=== PATIENT | male | born 1930 | race Two or more races ===

== ENCOUNTER 2016-10-23 18:00 | Inpatient (IN) | payer MEDICARE, MEDICAID ==
[~2016-10-23] VITALS: Ht 172.7 cm; Wt 74.8 kg
[2016-10-23 19:27] LABS: EOSINOPHILS % (AUTO) 1.4 % (0.0-3.0); LYMPHOCYTES % (AUTO) 13.4 % (20.0-45.0); MEAN CORPUSCULAR HEMOGLOBIN 30.7 PG (27.0-31.0); MEAN CORPUSCULAR HGB CONC 33.3 G/DL (32.0-36.0); MEAN CORPUSCULAR VOLUME 92 FL (80-99); MEAN PLATELET VOLUME 7.6 FL (6.5-10.1); MONOCYTES % (AUTO) 8.8 % (1.0-10.0); NEUTROPHILS % (AUTO) 75.5 % (45.0-75.0); PLATELET COUNT 150 K/UL (150-450); RED BLOOD COUNT 3.94 M/UL (4.70-6.10); RED CELL DISTRIBUTION WIDTH 12.7 % (11.6-14.8); WHITE BLOOD COUNT 8.8 K/UL (4.8-10.8)
[2016-10-23 20:03] LABS: ALANINE AMINOTRANSFERASE 7 U/L (3-41); ALBUMIN/GLOBULIN RATIO 1.8 (1.0-2.7); ANION GAP 15 (5-15); ASPARTATE AMINO TRANSFERASE 14 U/L (5-40); CALCIUM 8.7 mg/dL (8.6-10.2); CARBON DIOXIDE 24 mEQ/L (20-30); CHLORIDE 100 mEQ/L (98-107); CREATININE 1.4 mg/dL (0.7-1.2); HEMOLYSIS 9; SODIUM 139 mEQ/L (135-145); TOTAL PROTEIN 5.7 g/dL (6.6-8.7); TROPONIN I < 0.30 ng/mL (<=0.30)
[2016-10-23 20:13] LABS: CKMB 3.4 ng/mL (< 6.7)
[2016-10-23 21:43] VITALS: BP 108/65
[2016-10-23] MEDS ORDERED: Morphine Sulfate 2mg/ml Inj IVP PRN (22:45)
[2016-10-23] MEDS ORDERED: Nitroglycerin Subl 0.4mg tab (Bottle Of 25) SL PRN (22:45)
[2016-10-23] MEDS ORDERED: Mylanta II UD 30ml ORAL PRN (22:45)
[2016-10-23] MEDS ORDERED: Miralax 17gm pkt ORAL PRN (22:45)
[2016-10-23] MEDS ORDERED: UNOBMED (22:58)
[2016-10-23 23:11] VITALS: BP 110/67
--- NOTE | 2016-10-23 23:13 | Emergency Room Report ---
History of Present Illness General Chief Complaint: Dizziness Source: EMS Present Illness HPI 86-year-old male presents ED complaining of abdominal pain and diarrhea. Patient notes pain for last few days. EMS patient had low blood pressure. Given IV fluids. Patient states pain is a 5/10, sharp, nonradiating. No aggravating or relieving factors. Denies fevers or chills. Denies chest pain or shortness of breath. Denies any other associated symptoms Allergies: Coded Allergies: No Known Allergies (Unverified , 10/23/16) Patient History Past Medical History: CAD Past Surgical History: none Pertinent Family History: none Social History: Denies: alcohol use, drug use, smoking Immunizations: UTD Reviewed Nursing Documentation: PMH: Agreed, PSxH: Agreed Nursing Documentation-PMH Past Medical History: No History, Except For Hx Cardiac Problems: Yes - STENT Hx Pacemaker: Yes Review of Systems All Other Systems: negative except mentioned in HPI Physical Exam Vital Signs Date Time Temp Pulse Resp B/P Pulse Ox O2 Delivery O2 Flow Rate FiO2 10/23/16 18:00 57 16 89/49 99 Room Air 10/23/16 21:43 98.9 Sp02 EP Interpretation: reviewed, normal General Appearance: no apparent distress, alert, GCS 15, non-toxic Head: normocephalic, atraumatic Eyes: bilateral eye PERRL, bilateral eye normal inspection ENT: hearing grossly normal, normal pharynx, no angioedema, normal voice Neck: full range of motion, supple/symm/no masses Respiratory: chest non-tender, lungs clear, normal breath sounds, speaking full sentences Cardiovascular #1: regular rate, rhythm, no edema Cardiovascular #2: 2+ carotid (R), 2+ carotid (L), 2+ radial (R), 2+ radial (L) , 2+ dorsalis pedis (R), 2+ dorsalis pedis (L) Gastrointestinal: normal bowel sounds, soft, non-distended, no guarding, no rebound, tenderness Rectal: deferred Genitourinary: normal inspection, no CVA tenderness Musculoskeletal: back normal, gait/station normal, normal range of motion, non- tender Neurologic: alert, oriented x3, responsive, motor strength/tone normal, sensory intact, speech normal Psychiatric: judgement/insight normal, memory normal, mood/affect normal, no suicidal/homicidal ideation Reflexes: 3+ bicep (R), 3+ bicep (L), 3+ tricep (R), 3+ tricep (L), 3+ knee (R) , 3+ knee (L) Skin: normal color, no rash, warm/dry, well hydrated Lymphatic: no adenopathy Medical Decision Making Diagnostic Impression: Primary Impression: Intractable abdominal pain Additional Impressions: Dehydration ARF (acute renal failure) Qualified Codes: N17.9 - Acute kidney failure, unspecified Diverticulosis Qualified Codes: K57.30 - Diverticulosis of large intestine without perforation or abscess without bleeding ER Course Hospital Course 86-year-old male presents to ED with dizziness, abd pain, diarrhea Differential diagnoses include: gastroenteritis, dehydration, sepsis Clinical course Patient placed on stretcher. household chores. After initial history and physical I ordered labs, IV fluids, UA, pain medication and CT scan Labs - no leukocytosis, Hb/Hct stable. Cr 1.4, BNP elevated CT abdomen and pelvis -diverticulosis, bladder thickening EKG - atrial paced rhythm CXR - pacemaker Case discussed with Dr. Adorno and he agreed to accept the patient to his service for further care and support I feel this is a highly complex case requiring extensive working including EKG/ Rhythm strip, Xray/CT/US, Blood/urine lab work, repeat exams while in ED, and administration of strong opiates/narcotics for pain control, admission to hospital or close patient follow up. Diagnosis - intractable abd pain, dehydration, ARF, diverticulsis [facility] Labs Test 10/23/16 19:12 White Blood Count 8.8 K/UL (4.8-10.8) Red Blood Count 3.94 M/UL (4.70-6.10) Hemoglobin 12.1 G/DL (14.2-18.0) Hematocrit 36.4 % (42.0-52.0) Mean Corpuscular Volume 92 FL (80-99) Mean Corpuscular Hemoglobin 30.7 PG (27.0-31.0) Mean Corpuscular Hemoglobin Concent 33.3 G/DL (32.0-36.0) Red Cell Distribution Width 12.7 % (11.6-14.8) Platelet Count 150 K/UL (150-450) Mean Platelet Volume 7.6 FL (6.5-10.1) Neutrophils (%) (Auto) 75.5 % (45.0-75.0) Lymphocytes (%) (Auto) 13.4 % (20.0-45.0) Monocytes (%) (Auto) 8.8 % (1.0-10.0) Eosinophils (%) (Auto) 1.4 % (0.0-3.0) Basophils (%) (Auto) 1.0 % (0.0-2.0) Sodium Level 139 mEQ/L (135-145) Potassium Level 4.0 mEQ/L (3.4-4.9) Chloride Level 100 mEQ/L (98-107) Carbon Dioxide Level 24 mEQ/L (20-30) Anion Gap 15 (5-15) Blood Urea Nitrogen 21 mg/dL (7-23) Creatinine 1.4 mg/dL (0.7-1.2) Estimat Glomerular Filtration Rate mL/min (>60) Glucose Level 107 mg/dL (74-106) Calcium Level 8.7 mg/dL (8.6-10.2) Total Bilirubin 0.4 mg/dL (0.0-1.2) Aspartate Amino Transf (AST/SGOT) 14 U/L (5-40) Alanine Aminotransferase (ALT/SGPT) 7 U/L (3-41) Alkaline Phosphatase 52 U/L (40-129) Total Creatine Kinase 92 U/L (38-174) Creatine Kinase MB 3.4 ng/mL (< 6.7) Creatine Kinase MB Relative Index 3.6 Troponin I < 0.30 ng/mL (<=0.30) Pro-B-Type Natriuretic Peptide 1926 pg/mL (0-450) Total Protein 5.7 g/dL (6.6-8.7) Albumin 3.7 g/dL (3.5-5.2) Globulin 2.0 g/dL Albumin/Globulin Ratio 1.8 (1.0-2.7) EKG Diagnostic Results Rate: bradycardiac Rhythm: other - atrial paced ST Segments: no acute changes ASA given to the pt in ED: No Rhythm Strip Diag. Results EP Interpretation: yes Rhythm: NSR, no PVC's, no ectopy Chest X-Ray Diagnostic Results EP Interpretation: Yes Findings: no consolidation, no effusion, no pneumothorax, no acute cardiopulmonary disease, other - pacemaker Number of Views: 1 CT/MRI/US Diagnostic Results CT/MRI/US Diagnostic Results : Imaging Test Ordered: CT A/P Impression diverticulosis, bladder thickening Last Vital Signs Date Time Temp Pulse Resp B/P Pulse Ox O2 Delivery O2 Flow Rate FiO2 10/23/16 21:43 98.9 89 22 108/65 99 Room Air Status: improved Disposition: ADMITTED INPATIENT Condition: Serious Referrals: NOT CHOSEN IPA/,REFERRING (PCP) SABRINA CAMPOS M.D. Oct 23, 2016 23:13
[2016-10-24 00:01] LABS: APPEARANCE,URINE CLEAR; KETONES,URINE NEGATIVE (NEGATIVE); LEUKOCYTE ESTERASE ,URINE NEGATIVE (NEGATIVE); NITRITE,URINE NEGATIVE (NEGATIVE); PH,URINE 5 (4.5-8.0); UROBILINOGEN,URINE 1 MG/DL (0.0-1.0)
[2016-10-24 00:02] LABS: PROTEIN,URINE NEGATIVE (NEGATIVE)
[2016-10-24 00:40] VITALS: BP 101/47
[2016-10-24 01:11] LABS: BACTERIA,URINE FEW /HPF; RBC,URINE 0 /HPF (0 - 0); WBC,URINE 0 /HPF (0 - 0)
[2016-10-24] MEDS: D5 1/2NS 1,000 ML IV SCH ×3 (01:48→20:33)
[2016-10-24 04:27] VITALS: BP 104/59
[2016-10-24 07:48] VITALS: BP 107/58
[2016-10-24 07:53] LABS: BASOPHILS % (AUTO) 0.9 % (0.0-2.0); EOSINOPHILS % (AUTO) 3.1 % (0.0-3.0); LYMPHOCYTES % (AUTO) 32.5 % (20.0-45.0); MEAN CORPUSCULAR HEMOGLOBIN 30.9 PG (27.0-31.0); MEAN CORPUSCULAR HGB CONC 33.4 G/DL (32.0-36.0); MEAN CORPUSCULAR VOLUME 93 FL (80-99); MEAN PLATELET VOLUME 8.5 FL (6.5-10.1); MONOCYTES % (AUTO) 9.6 % (1.0-10.0); NEUTROPHILS % (AUTO) 53.9 % (45.0-75.0); PLATELET COUNT 155 K/UL (150-450); RED BLOOD COUNT 3.87 M/UL (4.70-6.10); RED CELL DISTRIBUTION WIDTH 12.8 % (11.6-14.8); WHITE BLOOD COUNT 6.3 K/UL (4.8-10.8)
[2016-10-24 08:06] LABS: MAGNESIUM 2.1 mg/dL (1.7-2.5); PHOSPHORUS 3.5 mg/dL (2.5-4.8); URIC ACID 4.8 mg/dL (3.0-7.5)
[2016-10-24 08:12] LABS: FREE T3 2.4 pg/mL (2.3-4.2)
[2016-10-24 08:17] LABS: ALANINE AMINOTRANSFERASE 6 U/L (3-41); ALBUMIN/GLOBULIN RATIO 2.3 (1.0-2.7); ANION GAP 13 (5-15); ASPARTATE AMINO TRANSFERASE 12 U/L (5-40); CALCIUM 8.3 mg/dL (8.6-10.2); CARBON DIOXIDE 24 mEQ/L (20-30); CHLORIDE 106 mEQ/L (98-107); CREATININE 1.1 mg/dL (0.7-1.2); HEMOLYSIS 0; SODIUM 143 mEQ/L (135-145)
[2016-10-24 08:36] LABS: AMYLASE 50 U/L (10-110); LIPASE 53 U/L (< 60)
[2016-10-24] MEDS: Heparin 5000 units/ml inj SUBQ SCH ×2 (08:56→20:34)
--- NOTE | 2016-10-24 10:35 | Diagnostic Imaging Report ---
Indication: Abdominal pain Technique: Continuous helical transaxial imaging of the abdomen and pelvis was obtained from the lung bases to the pubic symphysis during intravenous contrast administration. Coronal 2-D reformats were also obtained. Study obtained in a Siemens sensation [address] Total Dose length Product (DLP): [address] Dose Index Volume (CTDIvol): 18 mGy Comparison: None Findings: Pacemaker is noted. The lung bases are clear. Aorta is moderately calcified. Small hiatal hernia is present. The stomach is markedly distended with ingested material. Cholecystectomy noted. No abnormalities of the liver or spleen identified. There is extensive diverticulosis of the colon without definite diverticulitis. Under distended transverse colon noted. No adrenal mass seen. Parapelvic renal cysts are noted bilaterally. Prostate is enlarged measuring 7.2 x 6.2 x 8.0 cm. There is a left inguinal hernia containing fat. There is narrowing of intervertebral discs and accompanying endplate osteophyte formation. Hypertrophied facet joints also demonstrated.. The bones are osteopenic. There is thinning of the wall of the left ventricular apex. Appendix is not definitely seen but there are no secondary signs of acute appendicitis.. Curious finding of several tiny linear structures likely small veins within the mesentery especially the omentum. The reason and significance of this observation is not known. Impression: Extensive diverticulosis of the colon. No definite diverticulitis. Pacemaker Atherosclerotic vascular disease Enlarged prostate. Secondary cystitis with wall thickening of the bladder may be present. Please correlate clinically. 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 No evidence of acute appendicitis. Left inguinal hernia containing fat Dr. Ward has communicated the preliminary results to the Emergency Department. There are no significant discrepancies. The CT scanner at [facility] is accredited by the [employer] and the scans are performed using protocols designed to limit radiation exposure to as low as reasonably achievable to attain images of sufficient resolution adequate for diagnostic evaluation.
[2016-10-24 11:17] VITALS: BP 103/61
--- NOTE | 2016-10-24 13:08 | Diagnostic Imaging Report ---
Indication: Chest Pain Comparison: None A single view chest radiograph was obtained. Findings: No definite infiltrate or pulmonary vascular congestion identified. Pacemaker noted. The heart is enlarged. The aorta is mildly enlarged consistent with atherosclerotic vascular disease. The bones are osteopenic. The humeral heads are high riding bilaterally indicative of chronic rotator cuff tears Impression: No acute disease
--- NOTE | 2016-10-24 13:09 | Consultation ---
History of Present Illness General Date patient seen: Oct 24, 2016 Chief Complaint: Dizziness Referring physician: Dr. Adorno Reason for Consultation: Inpatient Management Present Illness HPI 86-year-old male with hx of pacemaker presents ED complaining of abdominal pain and diarrhea for last few days. He apparently passed out and his friend tried to do CPR. Patient had low blood pressure in the filed. He was given IV fluids. Denies fevers or chills. He is admitted to telemetry for sepsis and hypotension. Allergies: Coded Allergies: No Known Allergies (Unverified , 10/23/16) Medication History Miscellaneous Medications Unable to Obtain Medications (Unable To Obtain Meds), (Reported) Patient History Healthcare decision maker pt alert and oriented Resuscitation status Full Code Advanced Directive on File Past Medical/Surgical History Past Medical/Surgical History: (1) Pacemaker Review of Systems All Other Systems: negative except mentioned in HPI Physical Exam General Appearance: WD/WN Lines, tubes and drains: peripheral HEENT: normocephalic Neck: non-tender, normal alignment Respiratory/Chest: chest wall non-tender, lungs clear Breasts: no masses Cardiovascular/Chest: normal peripheral pulses Abdomen: normal bowel sounds, non tender Extremities: normal range of motion Skin Exam: normal pigmentation 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 Last 24 Hour Vital Signs Date Time Temp Pulse Resp B/P Pulse Ox O2 Delivery O2 Flow Rate FiO2 10/24/16 11:17 98.1 55 20 103/61 98 Room Air 10/24/16 08:00 52 10/24/16 07:48 96.1 57 20 107/58 98 Room Air 10/24/16 04:27 98.4 60 20 104/59 97 Room Air 10/24/16 04:00 59 10/24/16 01:35 64 10/24/16 00:49 98.7 80 19 101/47 99 Room Air 10/24/16 00:40 98.7 80 19 101/47 99 Room Air 10/23/16 23:11 98.7 87 21 110/67 98 Room Air 10/23/16 21:43 98.9 89 22 108/65 99 Room Air 10/23/16 18:00 57 16 89/49 99 Room Air Intake and Output 10/23/16 10/24/16 19:00 07:00 Intake Total 1375 ml Balance 1375 ml Intake IV Total 1375 ml Laboratory Tests Test 10/23/16 19:12 10/23/16 23:16 10/24/16 06:45 White Blood Count 8.8 K/UL (4.8-10.8) 6.3 K/UL (4.8-10.8) Red Blood Count 3.94 M/UL (4.70-6.10) L 3.87 M/UL (4.70-6.10) L Hemoglobin 12.1 G/DL (14.2-18.0) L 12.0 G/DL (14.2-18.0) L Hematocrit 36.4 % (42.0-52.0) L 35.8 % (42.0-52.0) L Mean Corpuscular Volume 92 FL (80-99) 93 FL (80-99) Mean Corpuscular Hemoglobin 30.7 PG (27.0-31.0) 30.9 PG (27.0-31.0) Mean Corpuscular Hemoglobin Concent 33.3 G/DL (32.0-36.0) 33.4 G/DL (32.0-36.0) Red Cell Distribution Width 12.7 % (11.6-14.8) 12.8 % (11.6-14.8) Platelet Count 150 K/UL (150-450) 155 K/UL (150-450) Mean Platelet Volume 7.6 FL (6.5-10.1) 8.5 FL (6.5-10.1) Neutrophils (%) (Auto) 75.5 % (45.0-75.0) H 53.9 % (45.0-75.0) Lymphocytes (%) (Auto) 13.4 % (20.0-45.0) L 32.5 % (20.0-45.0) Monocytes (%) (Auto) 8.8 % (1.0-10.0) 9.6 % (1.0-10.0) Eosinophils (%) (Auto) 1.4 % (0.0-3.0) 3.1 % (0.0-3.0) H Basophils (%) (Auto) 1.0 % (0.0-2.0) 0.9 % (0.0-2.0) Sodium Level 139 mEQ/L (135-145) 143 mEQ/L (135-145) Potassium Level 4.0 mEQ/L (3.4-4.9) 4.0 mEQ/L (3.4-4.9) Chloride Level 100 mEQ/L (98-107) 106 mEQ/L (98-107) Carbon Dioxide Level 24 mEQ/L (20-30) 24 mEQ/L (20-30) Anion Gap 15 (5-15) 13 (5-15) Blood Urea Nitrogen 21 mg/dL (7-23) 18 mg/dL (7-23) Creatinine 1.4 mg/dL (0.7-1.2) H 1.1 mg/dL (0.7-1.2) Estimat Glomerular Filtration Rate mL/min (>60) mL/min (>60) Glucose Level 107 mg/dL (74-106) H 102 mg/dL (74-106) Plasma/Serum Osmolality Pending Calcium Level 8.7 mg/dL (8.6-10.2) 8.3 mg/dL (8.6-10.2) L Total Bilirubin 0.4 mg/dL (0.0-1.2) 0.3 mg/dL (0.0-1.2) Aspartate Amino Transf (AST/SGOT) 14 U/L (5-40) 12 U/L (5-40) Alanine Aminotransferase (ALT/SGPT) 7 U/L (3-41) 6 U/L (3-41) Alkaline Phosphatase 52 U/L (40-129) 52 U/L (40-129) Total Creatine Kinase 92 U/L (38-174) 74 U/L (38-174) Creatine Kinase MB 3.4 ng/mL (< 6.7) Creatine Kinase MB Relative Index 3.6 Troponin I < 0.30 ng/mL (<=0.30) Pro-B-Type Natriuretic Peptide 1926 pg/mL (0-450) H Total Protein 5.7 g/dL (6.6-8.7) L 5.0 g/dL (6.6-8.7) L Albumin 3.7 g/dL (3.5-5.2) 3.5 g/dL (3.5-5.2) Globulin 2.0 g/dL 1.5 g/dL Albumin/Globulin Ratio 1.8 (1.0-2.7) 2.3 (1.0-2.7) Cortisol Pending Urine Color Yellow Urine Appearance Clear Urine pH 5 (4.5-8.0) Urine Specific [place] 1.015 (1.005-1.035) Urine Protein Negative (NEGATIVE) Urine Glucose (UA) Negative (NEGATIVE) Urine Ketones Negative (NEGATIVE) Urine Occult Blood Negative (NEGATIVE) Urine Nitrite Negative (NEGATIVE) Urine Bilirubin Negative (NEGATIVE) Urine Urobilinogen 1 MG/DL (0.0-1.0) H Urine Leukocyte Esterase Negative (NEGATIVE) Urine RBC 0 /HPF (0 - 0) Urine WBC 0 /HPF (0 - 0) Urine Squamous Epithelial Cells None /LPF (NONE/OCC) Urine Bacteria Few /HPF (NONE) Urine Eosinophils None seen Urine Osmolality Pending Urine Random Sodium 78 mmol/L Urine Random Chloride 85 mmol/L Urine Potassium Timed 56 mmol/L Activated Partial Thromboplast Time 25 SEC (23-33) Uric Acid 4.8 mg/dL (3.0-7.5) Phosphorus Level 3.5 mg/dL (2.5-4.8) Magnesium Level 2.1 mg/dL (1.7-2.5) Amylase Level 50 U/L (10-110) Lipase 53 U/L (< 60) Thyroid Stimulating Hormone (TSH) 1.050 uIU/mL (0.300-4.500) Free Thyroxine 1.21 ng/dL (0.86-1.85) Free Triiodothyronine 2.4 pg/mL (2.3-4.2) Height (Feet): 5 Height (Inches): 8.00 Weight (Pounds): 165 Medications Current Medications Medications (Trade) Dose Ordered Sig/Jose Route PRN Reason Start Time Stop Time Status Last Admin Dose Admin Acetaminophen (Tylenol) 650 mg Q4H PRN ORAL fever 10/23/16 22:45 11/22/16 22:44 Al Hydroxide/Mg Hydroxide (Mylanta II) 30 ml Q6H PRN ORAL dyspepsia 10/23/16 22:45 11/22/16 22:44 Dextrose (Dextrose 50%) STAT PRN IV Hypoglycemia 10/23/16 22:45 11/22/16 22:44 Dextrose/Sodium Chloride (D5 0.45% NS) 1,000 ml @ 75 mls/hr [id number] IV 10/23/16 17:40 11/22/16 17:39 10/24/16 01:48 Diphenhydramine HCl (Benadryl) 25 mg Q6H PRN ORAL Itching/Pruritis 10/23/16 22:45 11/22/16 22:44 Heparin Sodium (Porcine) (Heparin 5000 units/ml) 5,000 units EVERY 12 HOURS SUBQ 10/24/16 09:00 11/23/16 08:59 10/24/16 08:56 Morphine Sulfate (Morphine Sulfate) 2 mg Q4H PRN IVP severe Pain (Pain Scale 7-10) 10/23/16 22:45 10/30/16 22:44 Nitroglycerin (Ntg) 0.4 mg Q5M X 3 DOSES PRN SL Prn Chest Pain 10/23/16 22:45 11/22/16 22:44 Ondansetron HCl (Zofran) 4 mg Q6H PRN IVP Nausea & Vomiting 10/23/16 22:45 11/22/16 22:44 Polyethylene Glycol (Miralax) 17 gm HSPRN PRN ORAL Constipation 10/23/16 22:45 11/22/16 22:44 Temazepam (Restoril) 15 mg HSPRN PRN ORAL Insomnia 10/23/16 22:45 10/30/16 22:44 10/24/16 03:40 Assessment/Plan Problem List: (1) Hypotension ICD Codes: I95.9 - Hypotension, unspecified SNOMED: 46328650 (2) Diverticulosis ICD Codes: K57.90 - Diverticulosis of intestine, part unspecified, without perforation or abscess without bleeding SNOMED: 313080518 Qualifiers: Qualified Codes: K57.30 - Diverticulosis of large intestine without perforation or abscess without bleeding (3) Intractable abdominal pain ICD Codes: R10.9 - Unspecified abdominal pain SNOMED: 52511141, 034521953 (4) Pacemaker ICD Codes: Z95.0 - Presence of cardiac pacemaker SNOMED: 974670834, 797385208 Assessment/Plan Iv fluids echo NPO/GI work up evaluate pace maker check electrolytes ABBY JONES Oct 24, 2016 13:09
--- NOTE | 2016-10-24 14:35 | Cardiac Electrophysiology PN ---
Subjective Subjective 9390089. S/P BS BIVICD CHF EF 30% CAD s/p Stent S/P TAVR DW Dr [place] Objective Last 24 Hour Vital Signs Date Time Temp Pulse Resp B/P Pulse Ox O2 Delivery O2 Flow Rate FiO2 10/24/16 12:00 55 10/24/16 11:17 98.1 55 20 103/61 98 Room Air 10/24/16 08:00 52 10/24/16 07:48 96.1 57 20 107/58 98 Room Air 10/24/16 04:27 98.4 60 20 104/59 97 Room Air 10/24/16 04:00 59 10/24/16 01:35 64 10/24/16 00:49 98.7 80 19 101/47 99 Room Air 10/24/16 00:40 98.7 80 19 101/47 99 Room Air 10/23/16 23:11 98.7 87 21 110/67 98 Room Air 10/23/16 21:43 98.9 89 22 108/65 99 Room Air 10/23/16 18:00 57 16 89/49 99 Room Air Intake and Output 10/23/16 10/24/16 19:00 07:00 Intake Total 1375 ml Balance 1375 ml Intake IV Total 1375 ml Laboratory Tests Test 10/23/16 19:12 10/23/16 23:16 10/24/16 06:45 White Blood Count 8.8 K/UL (4.8-10.8) 6.3 K/UL (4.8-10.8) Red Blood Count 3.94 M/UL (4.70-6.10) L 3.87 M/UL (4.70-6.10) L Hemoglobin 12.1 G/DL (14.2-18.0) L 12.0 G/DL (14.2-18.0) L Hematocrit 36.4 % (42.0-52.0) L 35.8 % (42.0-52.0) L Mean Corpuscular Volume 92 FL (80-99) 93 FL (80-99) Mean Corpuscular Hemoglobin 30.7 PG (27.0-31.0) 30.9 PG (27.0-31.0) Mean Corpuscular Hemoglobin Concent 33.3 G/DL (32.0-36.0) 33.4 G/DL (32.0-36.0) Red Cell Distribution Width 12.7 % (11.6-14.8) 12.8 % (11.6-14.8) Platelet Count 150 K/UL (150-450) 155 K/UL (150-450) Mean Platelet Volume 7.6 FL (6.5-10.1) 8.5 FL (6.5-10.1) Neutrophils (%) (Auto) 75.5 % (45.0-75.0) H 53.9 % (45.0-75.0) Lymphocytes (%) (Auto) 13.4 % (20.0-45.0) L 32.5 % (20.0-45.0) Monocytes (%) (Auto) 8.8 % (1.0-10.0) 9.6 % (1.0-10.0) Eosinophils (%) (Auto) 1.4 % (0.0-3.0) 3.1 % (0.0-3.0) H Basophils (%) (Auto) 1.0 % (0.0-2.0) 0.9 % (0.0-2.0) Sodium Level 139 mEQ/L (135-145) 143 mEQ/L (135-145) Potassium Level 4.0 mEQ/L (3.4-4.9) 4.0 mEQ/L (3.4-4.9) Chloride Level 100 mEQ/L (98-107) 106 mEQ/L (98-107) Carbon Dioxide Level 24 mEQ/L (20-30) 24 mEQ/L (20-30) Anion Gap 15 (5-15) 13 (5-15) Blood Urea Nitrogen 21 mg/dL (7-23) 18 mg/dL (7-23) Creatinine 1.4 mg/dL (0.7-1.2) H 1.1 mg/dL (0.7-1.2) Estimat Glomerular Filtration Rate mL/min (>60) mL/min (>60) Glucose Level 107 mg/dL (74-106) H 102 mg/dL (74-106) Plasma/Serum Osmolality Pending Calcium Level 8.7 mg/dL (8.6-10.2) 8.3 mg/dL (8.6-10.2) L Total Bilirubin 0.4 mg/dL (0.0-1.2) 0.3 mg/dL (0.0-1.2) Aspartate Amino Transf (AST/SGOT) 14 U/L (5-40) 12 U/L (5-40) Alanine Aminotransferase (ALT/SGPT) 7 U/L (3-41) 6 U/L (3-41) Alkaline Phosphatase 52 U/L (40-129) 52 U/L (40-129) Total Creatine Kinase 92 U/L (38-174) 74 U/L (38-174) Creatine Kinase MB 3.4 ng/mL (< 6.7) Creatine Kinase MB Relative Index 3.6 Troponin I < 0.30 ng/mL (<=0.30) Pro-B-Type Natriuretic Peptide 1926 pg/mL (0-450) H Total Protein 5.7 g/dL (6.6-8.7) L 5.0 g/dL (6.6-8.7) L Albumin 3.7 g/dL (3.5-5.2) 3.5 g/dL (3.5-5.2) Globulin 2.0 g/dL 1.5 g/dL Albumin/Globulin Ratio 1.8 (1.0-2.7) 2.3 (1.0-2.7) Cortisol Pending Urine Color Yellow Urine Appearance Clear Urine pH 5 (4.5-8.0) Urine Specific [place] 1.015 (1.005-1.035) Urine Protein Negative (NEGATIVE) Urine Glucose (UA) Negative (NEGATIVE) Urine Ketones Negative (NEGATIVE) Urine Occult Blood Negative (NEGATIVE) Urine Nitrite Negative (NEGATIVE) Urine Bilirubin Negative (NEGATIVE) Urine Urobilinogen 1 MG/DL (0.0-1.0) H Urine Leukocyte Esterase Negative (NEGATIVE) Urine RBC 0 /HPF (0 - 0) Urine WBC 0 /HPF (0 - 0) Urine Squamous Epithelial Cells None /LPF (NONE/OCC) Urine Bacteria Few /HPF (NONE) Urine Eosinophils None seen Urine Osmolality Pending Urine Random Sodium 78 mmol/L Urine Random Chloride 85 mmol/L Urine Potassium Timed 56 mmol/L Activated Partial Thromboplast Time 25 SEC (23-33) Uric Acid 4.8 mg/dL (3.0-7.5) Phosphorus Level 3.5 mg/dL (2.5-4.8) Magnesium Level 2.1 mg/dL (1.7-2.5) Amylase Level 50 U/L (10-110) Lipase 53 U/L (< 60) Thyroid Stimulating Hormone (TSH) 1.050 uIU/mL (0.300-4.500) Free Thyroxine 1.21 ng/dL (0.86-1.85) Free Triiodothyronine 2.4 pg/mL (2.3-4.2) NESSA PEREZ Oct 24, 2016 14:35
--- NOTE | 2016-10-24 16:01 | Infectious Diseases Prog Note ---
Assessment/Plan Problems: (1) Diarrhea Assessment & Plan: will start ceftriaxon and flagyl empirically, and send stool for culture and C diff. (2) Hypotension Assessment & Plan: suspect due to dehydration and diarrhea, continue IVF for hydration and keep SBP >100 (3) ARF (acute renal failure) Assessment & Plan: due to dehydration and diarrhea, continue fluids and monitor UOP, and avoid nephrotoxic meds (4) Dehydration Assessment & Plan: continue IVF for hydration Subjective Allergies: Coded Allergies: No Known Allergies (Unverified , 10/23/16) Objective Vital Signs Last 24 Hour Vital Signs Date Time Temp Pulse Resp B/P Pulse Ox O2 Delivery O2 Flow Rate FiO2 10/24/16 12:00 55 10/24/16 11:17 98.1 55 20 103/61 98 Room Air 10/24/16 08:00 52 10/24/16 07:48 96.1 57 20 107/58 98 Room Air 10/24/16 04:27 98.4 60 20 104/59 97 Room Air 10/24/16 04:00 59 10/24/16 01:35 64 10/24/16 00:49 98.7 80 19 101/47 99 Room Air 10/24/16 00:40 98.7 80 19 101/47 99 Room Air 10/23/16 23:11 98.7 87 21 110/67 98 Room Air 10/23/16 21:43 98.9 89 22 108/65 99 Room Air 10/23/16 18:00 57 16 89/49 99 Room Air Height (Feet): 5 Height (Inches): 8.00 Weight (Pounds): 165 Laboratory Tests Test 10/23/16 19:12 10/23/16 23:16 10/24/16 06:45 White Blood Count 8.8 K/UL (4.8-10.8) 6.3 K/UL (4.8-10.8) Red Blood Count 3.94 M/UL (4.70-6.10) L 3.87 M/UL (4.70-6.10) L Hemoglobin 12.1 G/DL (14.2-18.0) L 12.0 G/DL (14.2-18.0) L Hematocrit 36.4 % (42.0-52.0) L 35.8 % (42.0-52.0) L Mean Corpuscular Volume 92 FL (80-99) 93 FL (80-99) Mean Corpuscular Hemoglobin 30.7 PG (27.0-31.0) 30.9 PG (27.0-31.0) Mean Corpuscular Hemoglobin Concent 33.3 G/DL (32.0-36.0) 33.4 G/DL (32.0-36.0) Red Cell Distribution Width 12.7 % (11.6-14.8) 12.8 % (11.6-14.8) Platelet Count 150 K/UL (150-450) 155 K/UL (150-450) Mean Platelet Volume 7.6 FL (6.5-10.1) 8.5 FL (6.5-10.1) Neutrophils (%) (Auto) 75.5 % (45.0-75.0) H 53.9 % (45.0-75.0) Lymphocytes (%) (Auto) 13.4 % (20.0-45.0) L 32.5 % (20.0-45.0) Monocytes (%) (Auto) 8.8 % (1.0-10.0) 9.6 % (1.0-10.0) Eosinophils (%) (Auto) 1.4 % (0.0-3.0) 3.1 % (0.0-3.0) H Basophils (%) (Auto) 1.0 % (0.0-2.0) 0.9 % (0.0-2.0) Sodium Level 139 mEQ/L (135-145) 143 mEQ/L (135-145) Potassium Level 4.0 mEQ/L (3.4-4.9) 4.0 mEQ/L (3.4-4.9) Chloride Level 100 mEQ/L (98-107) 106 mEQ/L (98-107) Carbon Dioxide Level 24 mEQ/L (20-30) 24 mEQ/L (20-30) Anion Gap 15 (5-15) 13 (5-15) Blood Urea Nitrogen 21 mg/dL (7-23) 18 mg/dL (7-23) Creatinine 1.4 mg/dL (0.7-1.2) H 1.1 mg/dL (0.7-1.2) Estimat Glomerular Filtration Rate mL/min (>60) mL/min (>60) Glucose Level 107 mg/dL (74-106) H 102 mg/dL (74-106) Plasma/Serum Osmolality Pending Calcium Level 8.7 mg/dL (8.6-10.2) 8.3 mg/dL (8.6-10.2) L Total Bilirubin 0.4 mg/dL (0.0-1.2) 0.3 mg/dL (0.0-1.2) Aspartate Amino Transf (AST/SGOT) 14 U/L (5-40) 12 U/L (5-40) Alanine Aminotransferase (ALT/SGPT) 7 U/L (3-41) 6 U/L (3-41) Alkaline Phosphatase 52 U/L (40-129) 52 U/L (40-129) Total Creatine Kinase 92 U/L (38-174) 74 U/L (38-174) Creatine Kinase MB 3.4 ng/mL (< 6.7) Creatine Kinase MB Relative Index 3.6 Troponin I < 0.30 ng/mL (<=0.30) Pro-B-Type Natriuretic Peptide 1926 pg/mL (0-450) H Total Protein 5.7 g/dL (6.6-8.7) L 5.0 g/dL (6.6-8.7) L Albumin 3.7 g/dL (3.5-5.2) 3.5 g/dL (3.5-5.2) Globulin 2.0 g/dL 1.5 g/dL Albumin/Globulin Ratio 1.8 (1.0-2.7) 2.3 (1.0-2.7) Cortisol Pending Urine Color Yellow Urine Appearance Clear Urine pH 5 (4.5-8.0) Urine Specific [place] 1.015 (1.005-1.035) Urine Protein Negative (NEGATIVE) Urine Glucose (UA) Negative (NEGATIVE) Urine Ketones Negative (NEGATIVE) Urine Occult Blood Negative (NEGATIVE) Urine Nitrite Negative (NEGATIVE) Urine Bilirubin Negative (NEGATIVE) Urine Urobilinogen 1 MG/DL (0.0-1.0) H Urine Leukocyte Esterase Negative (NEGATIVE) Urine RBC 0 /HPF (0 - 0) Urine WBC 0 /HPF (0 - 0) Urine Squamous Epithelial Cells None /LPF (NONE/OCC) Urine Bacteria Few /HPF (NONE) Urine Eosinophils None seen Urine Osmolality Pending Urine Random Sodium 78 mmol/L Urine Random Chloride 85 mmol/L Urine Potassium Timed 56 mmol/L Activated Partial Thromboplast Time 25 SEC (23-33) Uric Acid 4.8 mg/dL (3.0-7.5) Phosphorus Level 3.5 mg/dL (2.5-4.8) Magnesium Level 2.1 mg/dL (1.7-2.5) Amylase Level 50 U/L (10-110) Lipase 53 U/L (< 60) Thyroid Stimulating Hormone (TSH) 1.050 uIU/mL (0.300-4.500) Free Thyroxine 1.21 ng/dL (0.86-1.85) Free Triiodothyronine 2.4 pg/mL (2.3-4.2) Current Medications Medications (Trade) Dose Ordered Sig/Jose Route PRN Reason Start Time Stop Time Status Last Admin Dose Admin Acetaminophen (Tylenol) 650 mg Q4H PRN ORAL fever 10/23/16 22:45 11/22/16 22:44 Al Hydroxide/Mg Hydroxide (Mylanta II) 30 ml Q6H PRN ORAL dyspepsia 10/23/16 22:45 11/22/16 22:44 Carvedilol (Coreg) 3.125 mg Q12HR ORAL 10/24/16 18:00 11/23/16 17:59 Ceftriaxone Sodium 2 gm/ Dextrose 110 ml @ 220 mls/hr Q24H IVPB 10/24/16 15:00 10/31/16 14:59 Dextrose STAT PRN IV Hypoglycemia 10/23/16 22:45 11/22/16 22:44 Dextrose/Sodium Chloride (D5 0.45% NS) 1,000 ml @ 75 mls/hr [id number] IV 10/23/16 17:40 11/22/16 17:39 10/24/16 01:48 Diphenhydramine HCl (Benadryl) 25 mg Q6H PRN ORAL Itching/Pruritis 10/23/16 22:45 11/22/16 22:44 Heparin Sodium (Porcine) (Heparin 5000 units/ml) 5,000 units EVERY 12 HOURS SUBQ 10/24/16 09:00 11/23/16 08:59 10/24/16 08:56 Lisinopril (Zestril) 10 mg DAILY ORAL 10/25/16 09:00 11/24/16 08:59 Metronidazole (Flagyl) 100 ml @ 100 mls/hr Q8HR IVPB 10/24/16 16:00 10/31/16 15:59 Morphine Sulfate (Morphine Sulfate) 2 mg Q4H PRN IVP severe Pain (Pain Scale 7-10) 10/23/16 22:45 10/30/16 22:44 Nitroglycerin (Ntg) 0.4 mg Q5M X 3 DOSES PRN SL Prn Chest Pain 10/23/16 22:45 11/22/16 22:44 Ondansetron HCl (Zofran) 4 mg Q6H PRN IVP Nausea & Vomiting 10/23/16 22:45 11/22/16 22:44 Polyethylene Glycol (Miralax) 17 gm HSPRN PRN ORAL Constipation 10/23/16 22:45 11/22/16 22:44 Spironolactone (Aldactone) 25 mg DAILY ORAL 10/25/16 09:00 11/24/16 08:59 Temazepam (Restoril) 15 mg HSPRN PRN ORAL Insomnia 10/23/16 22:45 10/30/16 22:44 10/24/16 03:40 Elizabeth Dietrich M.D. Oct 24, 2016 16:01
[2016-10-24] MEDS: cefTRIAXone 2 GM in D5W 110 ML IVPB SCH (16:05)
--- NOTE | 2016-10-24 16:12 | Diagnostic Imaging Report ---
Indication:Abdominal pain Technique: Grayscale and duplex Doppler imaging of the abdomen performed. Comparison: None Findings: The prostate is enlarged measuring approximately 7 x 6 x 7.2 cm. The urinary bladder wall is thickened. Spleen is normal in size. There is mild left hydronephrosis. CBD is 10 mm which is prominent. Gallbladder is absent. Aorta is moderately calcified. Liver is unremarkable. Impression: Prostate hypertrophy. Thickened urinary bladder wall consistent with cystitis. These correlate clinically. Mild left hydronephrosis Atherosclerotic vascular disease
[2016-10-24 16:13] VITALS: BP 112/61
--- NOTE | 2016-10-24 16:41 | General Progress Note ---
Assessment/Plan Assessment/Plan syncope undergoing evaluation spoke to team Subjective Allergies: Coded Allergies: No Known Allergies (Unverified , 10/23/16) Subjective pt was brought in usual health of state till 2 days ago apparently was playing cards for 2 days and didnot eat or drink and cane home and passed out Laboratory Tests Test 10/23/16 19:12 10/23/16 23:16 10/24/16 06:45 White Blood Count 8.8 K/UL (4.8-10.8) 6.3 K/UL (4.8-10.8) Red Blood Count 3.94 M/UL (4.70-6.10) L 3.87 M/UL (4.70-6.10) L Hemoglobin 12.1 G/DL (14.2-18.0) L 12.0 G/DL (14.2-18.0) L Hematocrit 36.4 % (42.0-52.0) L 35.8 % (42.0-52.0) L Mean Corpuscular Volume 92 FL (80-99) 93 FL (80-99) Mean Corpuscular Hemoglobin 30.7 PG (27.0-31.0) 30.9 PG (27.0-31.0) Mean Corpuscular Hemoglobin Concent 33.3 G/DL (32.0-36.0) 33.4 G/DL (32.0-36.0) Red Cell Distribution Width 12.7 % (11.6-14.8) 12.8 % (11.6-14.8) Platelet Count 150 K/UL (150-450) 155 K/UL (150-450) Mean Platelet Volume 7.6 FL (6.5-10.1) 8.5 FL (6.5-10.1) Neutrophils (%) (Auto) 75.5 % (45.0-75.0) H 53.9 % (45.0-75.0) Lymphocytes (%) (Auto) 13.4 % (20.0-45.0) L 32.5 % (20.0-45.0) Monocytes (%) (Auto) 8.8 % (1.0-10.0) 9.6 % (1.0-10.0) Eosinophils (%) (Auto) 1.4 % (0.0-3.0) 3.1 % (0.0-3.0) H Basophils (%) (Auto) 1.0 % (0.0-2.0) 0.9 % (0.0-2.0) Sodium Level 139 mEQ/L (135-145) 143 mEQ/L (135-145) Potassium Level 4.0 mEQ/L (3.4-4.9) 4.0 mEQ/L (3.4-4.9) Chloride Level 100 mEQ/L (98-107) 106 mEQ/L (98-107) Carbon Dioxide Level 24 mEQ/L (20-30) 24 mEQ/L (20-30) Anion Gap 15 (5-15) 13 (5-15) Blood Urea Nitrogen 21 mg/dL (7-23) 18 mg/dL (7-23) Creatinine 1.4 mg/dL (0.7-1.2) H 1.1 mg/dL (0.7-1.2) Estimate Glomerular Filtration Rate mL/min (>60) mL/min (>60) Glucose Level 107 mg/dL (74-106) H 102 mg/dL (74-106) Plasma/Serum Osmolality Pending Calcium Level 8.7 mg/dL (8.6-10.2) 8.3 mg/dL (8.6-10.2) L Total Bilirubin 0.4 mg/dL (0.0-1.2) 0.3 mg/dL (0.0-1.2) Aspartate Amino Transferase (AST) 14 U/L (5-40) 12 U/L (5-40) Alanine Aminotransferase (ALT) 7 U/L (3-41) 6 U/L (3-41) Alkaline Phosphatase 52 U/L (40-129) 52 U/L (40-129) Total Creatine Kinase 92 U/L (38-174) 74 U/L (38-174) Creatine Kinase MB 3.4 ng/mL (< 6.7) Creatine Kinase MB Relative Index 3.6 Troponin I < 0.30 ng/mL (<=0.30) Pro-B-Type Natriuretic Peptide 1926 pg/mL (0-450) H Total Protein 5.7 g/dL (6.6-8.7) L 5.0 g/dL (6.6-8.7) L Albumin 3.7 g/dL (3.5-5.2) 3.5 g/dL (3.5-5.2) Globulin 2.0 g/dL 1.5 g/dL Albumin/Globulin Ratio 1.8 (1.0-2.7) 2.3 (1.0-2.7) Cortisol Pending Urine Color Yellow Urine Appearance Clear Urine pH 5 (4.5-8.0) Urine Specific [place] 1.015 (1.005-1.035) Urine Protein Negative (NEGATIVE) Urine Glucose (UA) Negative (NEGATIVE) Urine Ketones Negative (NEGATIVE) Urine Occult Blood Negative (NEGATIVE) Urine Nitrite Negative (NEGATIVE) Urine Bilirubin Negative (NEGATIVE) Urine Urobilinogen 1 MG/DL (0.0-1.0) H Urine Leukocyte Esterase Negative (NEGATIVE) Urine RBC 0 /HPF (0 - 0) Urine WBC 0 /HPF (0 - 0) Urine Squamous Epithelial Cells None /LPF (NONE/OCC) Urine Bacteria Few /HPF (NONE) Urine Eosinophils None seen Urine Osmolality Pending Urine Random Sodium 78 mmol/L Urine Random Chloride 85 mmol/L Urine Potassium Timed 56 mmol/L PTT 25 SEC (23-33) Uric Acid 4.8 mg/dL (3.0-7.5) Phosphorus Level 3.5 mg/dL (2.5-4.8) Magnesium Level 2.1 mg/dL (1.7-2.5) Amylase Level 50 U/L (10-110) Lipase 53 U/L (< 60) Thyroid Stimulating Hormone (TSH) 1.050 uIU/mL (0.300-4.500) Free Thyroxine 1.21 ng/dL (0.86-1.85) Free Triiodothyronine 2.4 pg/mL (2.3-4.2) Laboratory Tests Test 10/23/16 19:12 10/23/16 23:16 10/24/16 06:45 White Blood Count 8.8 K/UL (4.8-10.8) 6.3 K/UL (4.8-10.8) Red Blood Count 3.94 M/UL (4.70-6.10) L 3.87 M/UL (4.70-6.10) L Hemoglobin 12.1 G/DL (14.2-18.0) L 12.0 G/DL (14.2-18.0) L Hematocrit 36.4 % (42.0-52.0) L 35.8 % (42.0-52.0) L Mean Corpuscular Volume 92 FL (80-99) 93 FL (80-99) Mean Corpuscular Hemoglobin 30.7 PG (27.0-31.0) 30.9 PG (27.0-31.0) Mean Corpuscular Hemoglobin Concent 33.3 G/DL (32.0-36.0) 33.4 G/DL (32.0-36.0) Red Cell Distribution Width 12.7 % (11.6-14.8) 12.8 % (11.6-14.8) Platelet Count 150 K/UL (150-450) 155 K/UL (150-450) Mean Platelet Volume 7.6 FL (6.5-10.1) 8.5 FL (6.5-10.1) Neutrophils (%) (Auto) 75.5 % (45.0-75.0) H 53.9 % (45.0-75.0) Lymphocytes (%) (Auto) 13.4 % (20.0-45.0) L 32.5 % (20.0-45.0) Monocytes (%) (Auto) 8.8 % (1.0-10.0) 9.6 % (1.0-10.0) Eosinophils (%) (Auto) 1.4 % (0.0-3.0) 3.1 % (0.0-3.0) H Basophils (%) (Auto) 1.0 % (0.0-2.0) 0.9 % (0.0-2.0) Sodium Level 139 mEQ/L (135-145) 143 mEQ/L (135-145) Potassium Level 4.0 mEQ/L (3.4-4.9) 4.0 mEQ/L (3.4-4.9) Chloride Level 100 mEQ/L (98-107) 106 mEQ/L (98-107) Carbon Dioxide Level 24 mEQ/L (20-30) 24 mEQ/L (20-30) Anion Gap 15 (5-15) 13 (5-15) Blood Urea Nitrogen 21 mg/dL (7-23) 18 mg/dL (7-23) Creatinine 1.4 mg/dL (0.7-1.2) H 1.1 mg/dL (0.7-1.2) Estimate Glomerular Filtration Rate mL/min (>60) mL/min (>60) Glucose Level 107 mg/dL (74-106) H 102 mg/dL (74-106) Plasma/Serum Osmolality Pending Calcium Level 8.7 mg/dL (8.6-10.2) 8.3 mg/dL (8.6-10.2) L Total Bilirubin 0.4 mg/dL (0.0-1.2) 0.3 mg/dL (0.0-1.2) Aspartate Amino Transferase (AST) 14 U/L (5-40) 12 U/L (5-40) Alanine Aminotransferase (ALT) 7 U/L (3-41) 6 U/L (3-41) Alkaline Phosphatase 52 U/L (40-129) 52 U/L (40-129) Total Creatine Kinase 92 U/L (38-174) 74 U/L (38-174) Creatine Kinase MB 3.4 ng/mL (< 6.7) Creatine Kinase MB Relative Index 3.6 Troponin I < 0.30 ng/mL (<=0.30) Pro-B-Type Natriuretic Peptide 1926 pg/mL (0-450) H Total Protein 5.7 g/dL (6.6-8.7) L 5.0 g/dL (6.6-8.7) L Albumin 3.7 g/dL (3.5-5.2) 3.5 g/dL (3.5-5.2) Globulin 2.0 g/dL 1.5 g/dL Albumin/Globulin Ratio 1.8 (1.0-2.7) 2.3 (1.0-2.7) Cortisol Pending Urine Color Yellow Urine Appearance Clear Urine pH 5 (4.5-8.0) Urine Specific [place] 1.015 (1.005-1.035) Urine Protein Negative (NEGATIVE) Urine Glucose (UA) Negative (NEGATIVE) Urine Ketones Negative (NEGATIVE) Urine Occult Blood Negative (NEGATIVE) Urine Nitrite Negative (NEGATIVE) Urine Bilirubin Negative (NEGATIVE) Urine Urobilinogen 1 MG/DL (0.0-1.0) H Urine Leukocyte Esterase Negative (NEGATIVE) Urine RBC 0 /HPF (0 - 0) Urine WBC 0 /HPF (0 - 0) Urine Squamous Epithelial Cells None /LPF (NONE/OCC) Urine Bacteria Few /HPF (NONE) Urine Eosinophils None seen Urine Osmolality Pending Urine Random Sodium 78 mmol/L Urine Random Chloride 85 mmol/L Urine Potassium Timed 56 mmol/L PTT 25 SEC (23-33) Uric Acid 4.8 mg/dL (3.0-7.5) Phosphorus Level 3.5 mg/dL (2.5-4.8) Magnesium Level 2.1 mg/dL (1.7-2.5) Amylase Level 50 U/L (10-110) Lipase 53 U/L (< 60) Thyroid Stimulating Hormone (TSH) 1.050 uIU/mL (0.300-4.500) Free Thyroxine 1.21 ng/dL (0.86-1.85) Free Triiodothyronine 2.4 pg/mL (2.3-4.2) Objective Last 24 Hour Vital Signs Date Time Temp Pulse Resp B/P Pulse Ox O2 Delivery O2 Flow Rate FiO2 10/24/16 16:13 97.5 58 20 112/61 95 Room Air 10/24/16 12:00 55 10/24/16 11:17 98.1 55 20 103/61 98 Room Air 10/24/16 08:00 52 10/24/16 07:48 96.1 57 20 107/58 98 Room Air 10/24/16 04:27 98.4 60 20 104/59 97 Room Air 10/24/16 04:00 59 10/24/16 01:35 64 10/24/16 00:49 98.7 80 19 101/47 99 Room Air 10/24/16 00:40 98.7 80 19 101/47 99 Room Air 10/23/16 23:11 98.7 87 21 110/67 98 Room Air 10/23/16 21:43 98.9 89 22 108/65 99 Room Air 10/23/16 18:00 57 16 89/49 99 Room Air Intake and Output 10/23/16 10/24/16 19:00 07:00 Intake Total 1375 ml Balance 1375 ml Intake IV Total 1375 ml Laboratory Tests 10/23/16 19:12: White Blood Count 8.8, Red Blood Count 3.94L, Hemoglobin 12.1L, Hematocrit 36.4L , Mean Corpuscular Volume 92, Mean Corpuscular Hemoglobin 30.7, Mean Corpuscular Hemoglobin Concent 33.3, Red Cell Distribution Width 12.7, Platelet Count 150, Mean Platelet Volume 7.6, Neutrophils (%) (Auto) 75.5H, Lymphocytes ( %) (Auto) 13.4L, Monocytes (%) (Auto) 8.8, Eosinophils (%) (Auto) 1.4, Basophils (%) (Auto) 1.0, Sodium Level 139, Potassium Level 4.0, Chloride Level 100, Carbon Dioxide Level 24, Anion Gap 15, Blood Urea Nitrogen 21, Creatinine 1.4H, Estimat Glomerular Filtration Rate , Glucose Level 107H, Plasma/Serum Osmolality [Pending], Calcium Level 8.7, Total Bilirubin 0.4, Aspartate Amino Transf (AST/SGOT) 14, Alanine Aminotransferase (ALT/SGPT) 7, Alkaline Phosphatase 52, Total Creatine Kinase 92, Creatine Kinase MB 3.4, Creatine Kinase MB Relative Index 3.6, Troponin I < 0.30, Pro-B-Type Natriuretic Peptide 1926H, Total Protein 5.7L, Albumin 3.7, Globulin 2.0, Albumin/Globulin Ratio 1.8 , Cortisol [Pending] 10/23/16 23:16: Urine Color Yellow, Urine Appearance Clear, Urine pH 5, Urine Specific [place] 1.015, Urine Protein Negative, Urine Glucose (UA) Negative, Urine Ketones Negative, Urine Occult Blood Negative, Urine Nitrite Negative, Urine Bilirubin Negative, Urine Urobilinogen 1H, Urine Leukocyte Esterase Negative, Urine RBC 0 , Urine WBC 0, Urine Squamous Epithelial Cells None, Urine Bacteria Few, Urine Eosinophils None seen, Urine Osmolality [Pending], Urine Random Sodium 78, Urine Random Chloride 85, Urine Potassium Timed 56 10/24/16 06:45: White Blood Count 6.3, Red Blood Count 3.87L, Hemoglobin 12.0L, Hematocrit 35.8L , Mean Corpuscular Volume 93, Mean Corpuscular Hemoglobin 30.9, Mean Corpuscular Hemoglobin Concent 33.4, Red Cell Distribution Width 12.8, Platelet Count 155, Mean Platelet Volume 8.5, Neutrophils (%) (Auto) 53.9, Lymphocytes (% ) (Auto) 32.5, Monocytes (%) (Auto) 9.6, Eosinophils (%) (Auto) 3.1H, Basophils (%) (Auto) 0.9, Sodium Level 143, Potassium Level 4.0, Chloride Level 106, Carbon Dioxide Level 24, Anion Gap 13, Blood Urea Nitrogen 18, Creatinine 1.1, Estimat Glomerular Filtration Rate , Glucose Level 102, Calcium Level 8.3L, Total Bilirubin 0.3, Aspartate Amino Transf (AST/SGOT) 12, Alanine Aminotransferase (ALT/SGPT) 6, Alkaline Phosphatase 52, Total Creatine Kinase 74 , Total Protein 5.0L, Albumin 3.5, Globulin 1.5, Albumin/Globulin Ratio 2.3, Activated Partial Thromboplast Time 25, Uric Acid 4.8, Phosphorus Level 3.5, Magnesium Level 2.1, Amylase Level 50, Lipase 53, Thyroid Stimulating Hormone ( TSH) 1.050, Free Thyroxine 1.21, Free Triiodothyronine 2.4 Height (Feet): 5 Height (Inches): 8.00 Weight (Pounds): 165 Cardiovascular: normal rate, regular rhythm Respiratory/Chest: lungs clear Abdomen: normal bowel sounds Catia Wright MD Oct 24, 2016 16:41
[2016-10-24] MEDS ORDERED: D5 1/2NS 1000ml IV ONE (17:13)
[2016-10-24] MEDS: metroNIDAZOLE 500mg 100 ML IVPB SCH ×2 (17:55→21:39)
--- NOTE | 2016-10-24 19:48 | History and Physical Report ---
DATE OF ADMISSION: 10/23/2016 HISTORY OF PRESENT ILLNESS: The patient is being admitted for abdominal pain, diarrhea, dehydration. The patient was complaining of dizziness. He has a history of pacemaker, diarrhea, abdominal pain, syncopal episode, status post VT, and heart disease. The patient also has heart valve replacement and has had coronary stent x2. The patient had a syncopal episode, lives by himself, and was admitted for basically as mentioned abdominal pain, diarrhea, and dehydration. The patient complains of diarrhea and abdominal pain for the past couple of days. No rectal bleeding. CT shows diverticulosis. No acute cystitis. PAST SURGICAL HISTORY: Heart valve replacement, coronary stent x2, prostate surgery, eye surgery, and pacemaker. PAST MEDICAL HISTORY: CAD, arrhythmia, BPH, valvular regurgitation, and status post VT. MEDICATIONS: Unable to obtain. He cannot tell me what medications he is on. ALLERGIES: No known allergies. FAMILY HISTORY: Noncontributory. SOCIAL HISTORY: The patient denies history of smoking, alcohol, or illicit drugs. REVIEW OF SYSTEMS: HEENT: Denies headache. Respiratory: Denies shortness of breath. Denies cough. Cardiovascular: Denies chest pain. Denies orthopnea. Gastrointestinal: Reports abdominal pain and diarrhea. No rectal bleeding. No constipation. Extremities: Denies pain in lower extremities. Central Nervous System: Denies change in vision or speech pattern. He had a syncopal episode and cannot remember the details. Denies headache. No diplopia. Does have dizziness. PHYSICAL EXAMINATION: VITAL SIGNS: Temperature 98.7, pulse of 80, and blood pressure 101/47. HEENT: PERRLA. NECK: Supple. No lymphadenopathy. CHEST: Clear to auscultation. CARDIOVASCULAR: Irregularly irregular. Does have a murmur and sound. GASTROINTESTINAL: Soft, nontender, and nondistended. No organomegaly. EXTREMITIES: No edema. Moves all four extremities. NEUROLOGIC: Sensory intact to light touch. Reflexes are equal on both sides. Moves all four extremities. Oriented x2. LABORATORY DATA: White blood cell count 8.8, hemoglobin 12, and platelets 150,000. Sodium 143, potassium 4, BUN of 18, creatinine 1.1, and glucose of 1.2. Negative troponin. No significant EKG findings. ASSESSMENT AND PLAN: 1. Syncope, status post pacemaker. 2. Abdominal pain, diarrhea, and dehydration. CT showed diverticulosis, unlikely cystitis. 3. I have asked Dr. Pineda, Dr. Dietrich, Dr. Chen, Dr. Crump, and Dr. Jefferson to see the patient to find out what etiology of all these presenting symptoms and signs. April Adorno M.D. DR: SAURAV JOB#: [id number] CC:
[2016-10-24 20:00] VITALS: BP 122/72
--- NOTE | 2016-10-24 20:51 | General Progress Note ---
Assessment/Plan Assessment/Plan GI Consult Dictated Thank you Chandler Lopes Subjective Allergies: Coded Allergies: No Known Allergies (Unverified , 10/23/16) Objective Last 24 Hour Vital Signs Date Time Temp Pulse Resp B/P Pulse Ox O2 Delivery O2 Flow Rate FiO2 10/24/16 18:48 58 112/61 10/24/16 16:13 97.5 58 20 112/61 95 Room Air 10/24/16 12:00 55 10/24/16 11:17 98.1 55 20 103/61 98 Room Air 10/24/16 08:00 52 10/24/16 07:48 96.1 57 20 107/58 98 Room Air 10/24/16 04:27 98.4 60 20 104/59 97 Room Air 10/24/16 04:00 59 10/24/16 01:35 64 10/24/16 00:49 98.7 80 19 101/47 99 Room Air 10/24/16 00:40 98.7 80 19 101/47 99 Room Air 10/23/16 23:11 98.7 87 21 110/67 98 Room Air 10/23/16 21:43 98.9 89 22 108/65 99 Room Air Intake and Output 10/23/16 10/24/16 19:00 07:00 Intake Total 1375 ml Balance 1375 ml Intake IV Total 1375 ml Laboratory Tests 10/23/16 23:16: Urine Color Yellow, Urine Appearance Clear, Urine pH 5, Urine Specific [place] 1.015, Urine Protein Negative, Urine Glucose (UA) Negative, Urine Ketones Negative, Urine Occult Blood Negative, Urine Nitrite Negative, Urine Bilirubin Negative, Urine Urobilinogen 1H, Urine Leukocyte Esterase Negative, Urine RBC 0 , Urine WBC 0, Urine Squamous Epithelial Cells None, Urine Bacteria Few, Urine Eosinophils None seen, Urine Osmolality [Pending], Urine Random Sodium 78, Urine Random Chloride 85, Urine Potassium Timed 56 10/24/16 06:45: White Blood Count 6.3, Red Blood Count 3.87L, Hemoglobin 12.0L, Hematocrit 35.8L , Mean Corpuscular Volume 93, Mean Corpuscular Hemoglobin 30.9, Mean Corpuscular Hemoglobin Concent 33.4, Red Cell Distribution Width 12.8, Platelet Count 155, Mean Platelet Volume 8.5, Neutrophils (%) (Auto) 53.9, Lymphocytes (% ) (Auto) 32.5, Monocytes (%) (Auto) 9.6, Eosinophils (%) (Auto) 3.1H, Basophils (%) (Auto) 0.9, Activated Partial Thromboplast Time 25, Sodium Level 143, Potassium Level 4.0, Chloride Level 106, Carbon Dioxide Level 24, Anion Gap 13, Blood Urea Nitrogen 18, Creatinine 1.1, Estimat Glomerular Filtration Rate , Glucose Level 102, Uric Acid 4.8, Calcium Level 8.3L, Phosphorus Level 3.5, Magnesium Level 2.1, Total Bilirubin 0.3, Aspartate Amino Transf (AST/SGOT) 12, Alanine Aminotransferase (ALT/SGPT) 6, Alkaline Phosphatase 52, Total Creatine Kinase 74, Total Protein 5.0L, Albumin 3.5, Globulin 1.5, Albumin/Globulin Ratio 2.3, Amylase Level 50, Lipase 53, Thyroid Stimulating Hormone (TSH) 1.050 , Free Thyroxine 1.21, Free Triiodothyronine 2.4 Height (Feet): 5 Height (Inches): 8.00 Weight (Pounds): 165 THERESE LOPES Oct 24, 2016 20:51
--- NOTE | 2016-10-24 21:38 | Consultation ---
DATE OF CONSULTATION: 10/24/2016 CARDIAC ELECTROPHYSIOLOGY CONSULTATION REFERRING PHYSICIAN: April Adorno M.D. REASON FOR CONSULTATION: Evaluation of syncope in a patient with severe cardiomyopathy as well as history of defibrillator implantation and had aortic valve replacement. HISTORY OF PRESENT ILLNESS: The patient is an 86-year-old gentleman with history of hypertension and severe cardiomyopathy with ejection fraction of only 31%, who underwent a [employer] biventricular defibrillator implantation in 09/2012 at [facility]. The patient also has history of coronary artery disease status post drug-eluting stent x2 by Dr. Villa about 2 years ago and also had stent to the mid LAD by Dr. Santa in 07/2015. The patient also has history of transfemoral transcatheter aortic valve replacement (TAVR) with a 2.7 mm self-expandable marcos valve on 08/29/2015, as total requires three clinical trial. The patient was also recently had a followup by Dr. Issac Santa. The patient was brought to the emergency room after the patient has passed out and his friend tried to do CPR on him. The patient also has had abdominal pain and diarrhea. He has had low blood pressure in the field and received IV fluids. The patient was admitted to telemetry unit and a Cardiology consultation was obtained for further evaluation and management. PAST MEDICAL HISTORY: 1. Hypertension. 2. Coronary artery disease with history of coronary stents as mentioned above. 3. 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 4. Status post [employer] biventricular defibrillator implantation in 2012. 5. Status post transfemoral transcatheter aortic valve replacement (TAVR) on 08/29/2015, as total requires clinical trial. 6. Benign prostatic hypertrophy. 7. Hypertension. FAMILY HISTORY: Noncontributory. SOCIAL HISTORY: He does not smoke or drink alcohol. REVIEW OF SYSTEM: Thoroughly performed and was negative other than what was mentioned in history of present illness. PHYSICAL EXAMINATION: VITAL SIGNS: Blood pressure is 103/61, pulse 55, respirations 18, and he is afebrile. HEAD AND NECK: Shows mild JVD. LUNGS: Clear. CARDIOVASCULAR: Shows regular S1 and S2 with no gallop or murmur. He has a defibrillator in left subclavian. ABDOMEN: Soft. EXTREMITIES: Have no pitting edema. LABORATORY AND DIAGNOSTIC DATA: His EKG showed atrially sense of ventricular Bi V paced rhythm. His labs show white count 6.2, hemoglobin 12, hematocrit 35.8, and platelet count of 155,000. Sodium is 142, potassium 4.0, BUN of 18, creatinine 1.1, and glucose of 102. Calcium is 8.3. His BNP is 1920. His first troponin is negative. ASSESSMENT AND PLAN: 1. Syncope requiring cardiopulmonary resuscitation that was done by the patient acquaintance at the bedside. We will interrogate the patient's defibrillator to see whether it was truly a cardiac event as the patient's troponin currently is negative. 2. Status post [employer] biventricular defibrillator implantation again will be interrogated for further evaluation. 3. Status post (TAVR) transfemoral transcatheter aortic valve replacement in 08/2015 with normal function with most recent followup office four months ago. 4. Coronary artery disease with history of prior stents, as mentioned above. 5. Ischemic cardiomyopathy with ejection fraction of 30%. Echocardiogram will be repeated. The patient currently is euvolemic and lay flat in bed without any chest pain or shortness of breath. We will start the patient on heart failure therapy including low-dose Coreg and lisinopril and Aldactone. We will watch for risk of hyperkalemia in view of patient's creatinine of 1.4. I did not start the patient on Lasix as the patient currently does not seem to be volume overloaded despite the BNP of 1900. Thank you very much, Dr. Adorno, for allowing me to participate in the care of this patient. Please do not hesitate to contact me for any questions regarding my evaluation. Chapito Crump M.D. DR: JULIO JOB#: [id number] CC:
--- NOTE | 2016-10-24 22:29 | Consultation ---
Consult Note Consult Note NEUROLOGY CONSULTATION: Full note dictated #[id number] 86 y/o, RH, CM with PH of CAD s/p stent, Cardiac arrhythmia S/P pacer, was standing up after having played Poker for a prolonged time and not eating much and felt light headed and then had diarrhoea and almost passed out for a few seconds. He was brought to the [facility] [place] [facility] and has since been admitted. Neurological Exam: Normal except for mild memory problems and globally decreased reflexes. IMPRESSION: Syncopal event preceded by lightheadedness and associated with diarrhoea. Mild neuropathic process. REC: Cardiac monitoring. CVNIP W/U for neuropathic process. Shemar Jefferson M.D., M.S.P.SHEMAR ALMAZAN Oct 24, 2016 22:29
[2016-10-25 00:03] VITALS: BP 115/63
--- NOTE | 2016-10-25 00:08 | Consultation ---
DATE OF CONSULTATION: 10/24/2016 REQUESTING PHYSICIAN: April Adorno M.D. REASON FOR CONSULTATION: Diarrhea, hypotension, and rule out infectious etiology. HISTORY OF PRESENT ILLNESS: The patient is an 86-year-old male with past medical history of coronary artery disease who had a stent recently placed and pacemaker presented to [facility] with abdominal pain and diarrhea for few days. The patient was found to be hypotensive in the emergency room with blood pressure of 89/49. He has received intravenous fluids and his pain seems to be sharp nonradiating 5/10 with no aggravating or relieving factors. Denied any fever or chills. No chest pain or shortness of breath. Diarrhea has been going on for the last week or so. Nonbloody. Denied any recent travel or sick contacts. I was consulted by the primary provider for antibiotics recommendation and further management. REVIEW OF SYSTEM: A 12-point system review were all negative apart from the one I mentioned above in my History and Physical. PAST MEDICAL HISTORY: Significant for coronary artery disease, status post stent placement, and pacemaker placement. PAST SURGICAL HISTORY: He had a pacemaker placement. FAMILY HISTORY: Negative. SOCIAL HISTORY: He lives at a rehabilitation facility. No recent drugs, tobacco, or alcohol. ALLERGIES: He has no known drug allergy. MEDICATIONS: Please refer to the MAR for further details. LABORATORY DATA: Showed white count of 6.3, hemoglobin of 12, and platelet count 155,000. BUN of 21, creatinine of 1.4, AST of 14, and ALT of 7. Urinalysis showed negative nitrite, negative leukocyte esterase, and no eosinophils. Imaging CT scan of the abdomen and pelvis showed extensive diverticulosis of the colon. No definite diverticulitis pacemaker atherosclerotic vascular disease, enlarged prostate secondary cystitis with wall thickening of the bladder may be present, parapelvic renal cysts. Probable old infarct in the left ventricular apex. No evidence of acute appendicitis with left inguinal hernia. A chest x-ray showed no acute disease. PHYSICAL EXAMINATION: VITAL SIGNS: Showed temperature 98.1, pulse 55, respirations 20, blood pressure 103/61, and pulse oximetry 98% on room air. GENERAL: This is an elderly male, lying in bed, alert not in distress. Normocephalic and atraumatic. Pupils reactive to light. Dry oral mucosa. No exudate. NECK: Supple. No lymphadenopathy. CARDIOVASCULAR: Regular rate and rhythm. No murmur or gallop. LUNGS: Clear bilaterally. Diminished breathing sounds at the bases. ABDOMEN: Soft, nontender, and nondistended. Positive bowel sounds. No hepatosplenomegaly. EXTREMITIES: No edema. No cyanosis. ASSESSMENT AND PLAN: 1. Acute diarrhea, rule out infectious etiology. We will start the patient empirically on ceftriaxone and Flagyl. We will send stool for culture and C. difficile. 2. Hypotension. Suspect due to dehydration and diarrhea. Continue intravenous fluid for hydration. Keep systolic blood pressure more than 100. 3. Acute renal failure due to dehydration and diarrhea. Continue fluids and monitor urine output. Avoid nephrotoxic medicine. Consult renal. 4. Dehydration. Continue intravenous fluid for hydration. Monitor electrolytes. Elizabeth Dietrich M.D. DR: AGA JOB#: [id number] CC:
--- NOTE | 2016-10-25 00:28 | Consultation ---
DATE OF CONSULTATION: 10/24/2016 NEUROLOGY CONSULTATION REQUESTING PHYSICIAN: April Adorno M.D. 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 He enjoys playing poker and had been playing poker for about two days and then had got knocked and he was standing up and suddenly felt lightheaded. He then felt that he needed to go to the bathroom but by the time he could make it to the bathroom he apparently had incontinence of diarrheal stool and in addition, passed out. It is unclear as to how long he was out, but he thinks it was only for a few seconds. He rapidly regained consciousness and the mind was quite clear when he regained consciousness. He denies any weakness on one side or the other, numbness on one side or the other, problems with speech, problems with language, problems with vision, or any other neurological symptoms. He also denies any similar episodes in the past. PAST MEDICAL HISTORY: Significant for coronary artery disease status post myocardial infarction, valvular heart disease status post valve replacement, malignant cardiac arrhythmias status post pacemaker implantation, and benign prostatic hypertrophy status post prostate surgery. FAMILY HISTORY: Nothing significant. PERSONAL HISTORY: Home, he lives alone but has a friend who keeps a close eye on him. 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 Habits, he denies the use of alcohol. He drinks a few alcoholic drinks in a month. He denies use of tobacco or illicit drugs. PRESENT MEDICATIONS: Include lisinopril, spironolactone, carvedilol, metronidazole, ceftriaxone, heparin for DVT prophylaxis, Tylenol p.r.n., morphine p.r.n., MiraLAX p.r.n., Zofran p.r.n., Restoril p.r.n., Benadryl p.r.n., Mylanta p.r.n., and nitroglycerin p.r.n. PHYSICAL EXAMINATION: GENERAL: He is a well-developed, well-nourished, pleasant gentleman, lying in bed, in no acute distress. VITAL SIGNS: Pulse 54 per minute, blood pressure 122/72 mmHg, respirations 20 per minute, and temperature 97.5 degrees Fahrenheit. HEENT: Head, normocephalic and atraumatic. NECK: No neck rigidity was observed. EENT EXAMINATION: Benign. NEUROLOGICAL EXAMINATION: Mental status, he was alert and awake. He was oriented to person, place, and time. He was able to recall 3 out of 3 words immediately after one minute and after 3 minutes on the second trial. He was able to remember presidents from through [place] but could not remember presidents prior to that. His mathematical skills were fairly good. His visuospatial function was preserved. Speech, he had no dysarthria. Language, he had a mild anomia for low-frequency words. CRANIAL NERVE II: The visual zhong were intact to confrontation testing. CRANIAL NERVES III, IV AND : The external ocular movements were full and the pupils 3 mm in diameter, equal, round, regular and reactive to light. CRANIAL NERVE V: He had normal facial sensations in the temporalis, masseters, and pterygoids function normally. CRANIAL NERVE VII: He had normal facial expressions and no facial asymmetry. CRANIAL NERVE VIII: He was able to hear well bilaterally and had no nystagmus. CRANIAL NERVE IX: The palate moved symmetrically on phonation. CRANIAL NERVE X: He had no hoarseness of voice. CRANIAL NERVE XI: The sternocleidomastoids and trapezii function normally. CRANIAL NERVE XII: The tongue was in the midline without any fasciculations or atrophy. MOTOR SYSTEM: The tone was normal in all four extremities. Examination of muscle mass revealed no focal wasting. Examination of power revealed grade 5/5 power in all muscle groups tested. SENSORY EXAMINATION: He had intact sensations to pinprick, light touch, and graphesthesia. Position sense was diminished in the toes bilaterally but was normal in the fingers bilaterally. Coordination, he performed well on empcgf-yo-aicq and uvba-rq-wyjn testing. On Romberg test, he swayed but did not fall to one side or the other. Reflexes, trace positive and bilaterally symmetrical at the biceps, triceps, brachioradialis, and knees with 0 at both ankles. The plantar responses were flexor bilaterally. Stance, he stood up with support with a minimally wide-based stance. Gait, he walks with support with a minimally wide-based gait. DIAGNOSTIC IMPRESSION: 1. The patient is an 86-year-old, right-handed, gentleman, who does have a past history of coronary artery disease status post stent placement, cardiac arrhythmias status post pacemaker implantation, valvular heart disease status post valve replacement, who was standing up after having played poker for a prolonged period of time and not eating much and then felt lightheaded and then apparently had diarrhea and passed out for a few seconds. 2. On neurological examination at this time, he does demonstrate mild problems with recent and remote memory, decreased position sense in the toes bilaterally and globally diminished reflexes. 3. Laboratory data on admission revealed that his creatinine was elevated to 1.4. His proBNP was elevated to 1926. His protein was low at 5.7. His CBC revealed a hemoglobin of 12.0. His urinalysis was relatively benign. His TSH, T3, and T4 were normal. 4. The patient's history and neurological examination are most compatible with a syncopal event, which may be related to dehydration and poor nutritional intake, however, other treatable causes should be excluded. In addition, he also has a mild neuropathic process, which may or may not have contributed to his event. RECOMMENDATIONS: 1. Agree with management thus far. 2. Agree with cardiac monitoring to evaluate the patient for a malignant cardiac arrhythmias that could have caused the syncopal event. 3. A cerebrovascular noninvasive profile should be performed to evaluate the patient for hemodynamically significant carotid disease. 4. The patient should be worked up thoroughly for other treatable causes of neuropathic process. 5. Workup for other system is being planned by the other consultants. Thank you for entrusting me with the care of this patient. I shall follow him with you. Ulisses Jefferson M.D. DR: FRANNIE JOB#: [id number] CC:
[2016-10-25 04:04] VITALS: BP 108/59
--- NOTE | 2016-10-25 04:48 | Consultation ---
DATE OF CONSULTATION: 10/24/2016 NOTE: "POOR AUDIO QUALITY" GASTROENTEROLOGY CONSULTATION CONSULTING PHYSICIAN: Heather Lopes M.D. CHIEF COMPLAINT: I was asked to see this patient for evaluation of . HISTORY OF PRESENT ILLNESS: The patient is a pleasant 86-year-old man, who was admitted to the hospital complaining of dizziness, abdominal pain, diarrhea, and dehydration. The patient's symptoms were somewhat in onset. . He denies any hematochezia or hematemesis. He has had history of other medical problems outlined . During the hospitalization, his symptoms improved. He is able to tolerate oral diet and appetite is poor. He has had colonoscopies with last one was five years ago. He has advised that he needs for screening purposes. PAST MEDICAL HISTORY: History of , prostate surgery, eye surgery, pacemaker placement, history of arrhythmias, history of prostatic hypertrophy, as well as myocardial infarction. MEDICATIONS: See chart list for details. SOCIAL HISTORY: The patient does not smoke, drink alcohol, or use drugs. FAMILY HISTORY: Noncontributory. PHYSICAL EXAMINATION: Noncontributory. REVIEW OF SYSTEMS: Otherwise negative. PHYSICAL EXAMINATION: GENERAL: A pleasant white man, seen in his room. HEENT: Normocephalic and atraumatic. Sclerae anicteric. Oropharynx clear. NECK: Supple. CHEST: Clear to auscultation. CARDIOVASCULAR: Regular rate. ABDOMEN: Soft with good bowel sounds. There is no organomegaly or tenderness. EXTREMITIES: Revealed no edema. NEUROLOGIC: Nonfocal. LABORATORY DATA: Laboratory data were noted. ASSESSMENT: This patient presents with abdominal pain and diarrhea, which are improved. . At this point, the patient presents with significant ____ diet can be restarted. The stools have been ordered to be checked for Clostridium difficile and the results are still pending. Should the patient's symptoms persist, further evaluation is necessary. Otherwise, advised to and treated conservatively. He was advised that he should undergo an outpatient colonoscopy better. RECOMMENDATIONS: Per above discussion and per orders written in the chart. Thank you for asking me to participate in the care of this patient. Heather Lopes M.D. DR: YANETH JOB#: [id number] CC:
[2016-10-25] MEDS: metroNIDAZOLE 500mg 100 ML IVPB SCH ×2 (06:06→14:00)
--- NOTE | 2016-10-25 08:32 | General Progress Note ---
Assessment/Plan Assessment/Plan Assessment - Diarrhea - h/o arrhythmias - CAD Recommendations - push po - follow symptoms - elevate HOB - f/u stool w/u Subjective Allergies: Coded Allergies: No Known Allergies (Unverified , 10/23/16) Subjective Feels OK no abdominal complaints no vomiting or diarrhea Objective Last 24 Hour Vital Signs Date Time Temp Pulse Resp B/P Pulse Ox O2 Delivery O2 Flow Rate FiO2 10/25/16 04:04 98.8 50 19 108/59 96 Room Air 10/25/16 04:00 60 10/25/16 00:03 97.9 53 20 115/63 98 Room Air 10/25/16 00:00 84 10/24/16 20:00 52 10/24/16 20:00 97.5 54 20 122/72 97 Room Air 10/24/16 18:48 58 112/61 10/24/16 16:13 97.5 58 20 112/61 95 Room Air 10/24/16 16:00 52 10/24/16 12:00 55 10/24/16 11:17 98.1 55 20 103/61 98 Room Air Intake and Output 10/24/16 10/25/16 19:00 07:00 Intake Total 525 ml 600 ml Output Total 600 ml 900 ml Balance -75 ml -300 ml Intake IV Total 525 ml 600 ml Output Urine Total 600 ml 900 ml Laboratory Tests 10/25/16 07:25: Erythrocyte Sedimentation Rate [Pending], Hemoglobin A1c [Pending], Troponin I [ Pending], Pro-B-Type Natriuretic Peptide [Pending], Total Protein (PEP) [Pending ], Albumin (PEP) [Pending], Globulin (PEP) [Pending], Albumin/Globulin Ratio [ Pending], Fpywr-3-Iigfertsc [Pending], Zvzyo-9-Ircvxybdn [Pending], Beta Globulins [Pending], Beta Gamma Globulin [Pending], PEP Abnormal Protein Bands [ Pending], Protein Electrophoresis Interpret [Pending], Vitamin B12 Level [ Pending], Vitamin D 25-Hydroxy [Pending], 25-Hydroxy Vitamin D2 [Pending], 25- Hydroxy Vitamin D3 [Pending], Folate [Pending], Rapid Plasma Reagin [Pending] Height (Feet): 5 Height (Inches): 8.00 Weight (Pounds): 165 Objective Elderly WM NCAT supple CTA RRR Soft NT ND no edema THERESE GILL Oct 25, 2016 08:32
[2016-10-25 08:37] VITALS: BP 128/66
[2016-10-25 08:39] LABS: TROPONIN I < 0.30 ng/mL (<=0.30)
[2016-10-25] MEDS: Heparin 5000 units/ml inj SUBQ SCH (08:48)
[2016-10-25] MEDS ORDERED: Spironolactone 25mg tab ORAL SCH (09:00)
[2016-10-25] MEDS ORDERED: Lisinopril 10mg tab ORAL SCH (09:00)
[2016-10-25 09:25] LABS: CORTISOL LC 24.2 ug/dL (.)
[2016-10-25] MEDS: D5 1/2NS 1,000 ML IV SCH (09:40)
--- NOTE | 2016-10-25 11:06 | General Progress Note ---
Assessment/Plan Problem List: (1) Dehydration ICD Codes: E86.0 - Dehydration SNOMED: 99093458 (2) Diverticulosis ICD Codes: K57.90 - Diverticulosis of intestine, part unspecified, without perforation or abscess without bleeding SNOMED: 822991493 Qualifiers: Qualified Codes: K57.30 - Diverticulosis of large intestine without perforation or abscess without bleeding (3) Pacemaker ICD Codes: Z95.0 - Presence of cardiac pacemaker SNOMED: 851083132, 700318615 (4) Diarrhea ICD Codes: R19.7 - Diarrhea, unspecified SNOMED: 46115147 Status: progressing Assessment/Plan afebrile vitals stable needs fluids no diarrhea clinically improving Subjective Constitutional: Reports: no symptoms Allergies: Coded Allergies: No Known Allergies (Unverified , 10/23/16) Objective Last 24 Hour Vital Signs Date Time Temp Pulse Resp B/P Pulse Ox O2 Delivery O2 Flow Rate FiO2 10/25/16 08:47 128/66 10/25/16 08:47 61 128/66 10/25/16 08:37 97.0 57 18 128/66 97 Room Air 10/25/16 04:04 98.8 50 19 108/59 96 Room Air 10/25/16 04:00 60 10/25/16 00:03 97.9 53 20 115/63 98 Room Air 10/25/16 00:00 84 10/24/16 20:00 52 10/24/16 20:00 97.5 54 20 122/72 97 Room Air 10/24/16 18:48 58 112/61 10/24/16 16:13 97.5 58 20 112/61 95 Room Air 10/24/16 16:00 52 10/24/16 12:00 55 10/24/16 11:17 98.1 55 20 103/61 98 Room Air Intake and Output 10/24/16 10/25/16 19:00 07:00 Intake Total 525 ml 600 ml Output Total 600 ml 900 ml Balance -75 ml -300 ml IV Total 525 ml 600 ml Output Urine Total 600 ml 900 ml Laboratory Tests 10/25/16 07:25: Erythrocyte Sedimentation Rate 4, Hemoglobin A1c 5.0, Troponin I < 0.30, Pro-B- Type Natriuretic Peptide 999H, Total Protein (PEP) [Pending], Albumin (PEP) [ Pending], Globulin (PEP) [Pending], Albumin/Globulin Ratio [Pending], Alpha-1- Globulins [Pending], Rypvz-9-Rsjpnjmxb [Pending], Beta Globulins [Pending], Beta Gamma Globulin [Pending], PEP Abnormal Protein Bands [Pending], Protein Electrophoresis Interpret [Pending], Vitamin B12 Level 211, Vitamin D 25- Hydroxy [Pending], 25-Hydroxy Vitamin D2 [Pending], 25-Hydroxy Vitamin D3 [ Pending], Folate [Pending], Rapid Plasma Reagin [Pending] Height (Feet): 5 Height (Inches): 8.00 Weight (Pounds): 165 EENT: PERRL/EOMI Cardiovascular: normal rate Respiratory/Chest: lungs clear Abdomen: soft April Adorno MD Oct 25, 2016 11:06
[2016-10-25 11:53] VITALS: BP 114/61
[2016-10-25] MEDS: cefTRIAXone 2 GM in D5W 110 ML IVPB SCH (14:13)
--- NOTE | 2016-10-25 15:10 | Cardiology Report ---
APPROVED REPORT EXAM: Two-dimensional and M-mode echocardiogram with Doppler and color Doppler. INDICATION Syncope M-Mode DIMENSIONS IVSd1.1 (0.7-1.1cm)Left Atrium (MM)4.6 (1.6-4.0cm) LVDd5.7 (3.5-5.6cm)Aortic Root2.4 (2.0-3.7cm) IVSs2.2 cm LVDs4.4 (2.5-4.0cm) PWs2.8 cm Technically difficult study due to poor acoustic windows. Mild left ventricular enlargement. Mid to apical anterolateral, anterior, anteroseptal, inferoseptal and septal wall akinesia. This is highly suggestive of ischemic cardiomyopathy. Left ventricular ejection fraction estimated to be 30-35 %. Mild concentric left ventricular hypertrophy. No evidence of pericardial fat or effusion. Mild left atrial enlargement. Right cardiac chamber sizes are within normal limits. Mild focal aortic valve sclerosis with adequate cusp excursion. Mildly thickened mitral valve leaflets with normal excursion. Mild mitral annulus and aortic root calcification. Pulmonic valve not well visualized. Normal tricuspid valve structure. IVC dilated at 1.6 cm with physiologic collapse. A color flow and spectral Doppler study was performed and revealed: Moderate aortic regurgitation. Moderate to severe mitral regurgitation. Mitral diastolic velocities suggest reduced left ventricular relaxation (Grade I). Trace tricuspid regurgitation. Tricuspid systolic velocities suggests peak right ventricular systolic pressure of 19 mmHg. No pulmonic regurgitation present.
--- NOTE | 2016-10-25 16:13 | Infectious Diseases Prog Note ---
Assessment/Plan Problems: (1) Diarrhea Assessment & Plan: continue ceftriaxon and flagyl empirically, await stool for culture and C diff. (2) Hypotension Assessment & Plan: suspect due to dehydration and diarrhea, continue IVF for hydration and keep SBP >100 (3) ARF (acute renal failure) Assessment & Plan: due to dehydration and diarrhea, continue fluids and monitor UOP, and avoid nephrotoxic meds (4) Dehydration Assessment & Plan: continue IVF for hydration Subjective Constitutional: Denies: anorexia, chills, drenching sweats, fatigue, fever, no symptoms, other HEENT: Denies: congestion, coryza, dysphagia, hearing change, no symptoms, other, visual change Respiratory: Denies: dry cough, no symptoms, other, productive cough, shortness of breath Breasts: Denies: discharge, no symptoms, other, swelling, tenderness Cardiovascular: Denies: chest pain, dyspnea on exertion, no symptoms, other, palpitations Gastrointestinal/Abdominal: Denies: bloating, blood in stool, constipation, diarrhea, nausea, no symptoms, other, vomiting Genitourinary: Denies: dysuria, frequency, hematuria, no symptoms, nocturia, other Neurologic: Denies: confusion, headache, no symptoms, numbness, other, weakness Psychiatric: Denies: anxiety, depression, no symptoms, other Skin: Denies: no symptoms, other, rash, ulcer Allergies: Coded Allergies: No Known Allergies (Unverified , 10/23/16) Objective Vital Signs Last 24 Hour Vital Signs Date Time Temp Pulse Resp B/P Pulse Ox O2 Delivery O2 Flow Rate FiO2 10/25/16 11:53 97.2 55 20 114/61 96 Room Air 10/25/16 11:46 55 10/25/16 08:47 128/66 10/25/16 08:47 61 128/66 10/25/16 08:37 97.0 57 18 128/66 97 Room Air 10/25/16 07:34 53 10/25/16 04:04 98.8 50 19 108/59 96 Room Air 10/25/16 04:00 60 10/25/16 00:03 97.9 53 20 115/63 98 Room Air 10/25/16 00:00 84 10/24/16 20:00 52 10/24/16 20:00 97.5 54 20 122/72 97 Room Air 10/24/16 18:48 58 112/61 10/24/16 16:13 97.5 58 20 112/61 95 Room Air Height (Feet): 5 Height (Inches): 8.00 Weight (Pounds): 165 General Appearance: WD/WN, no acute distress HEENT: normocephalic, atraumatic, anicteric, mucous membranes moist Respiratory/Chest: chest wall non-tender, lungs clear, normal breath sounds, no respiratory distress, no accessory muscle use Cardiovascular: normal peripheral pulses, normal rate, regular rhythm Abdomen: normal bowel sounds, soft, non tender, no organomegaly, non distended , no mass Extremities: no cyanosis, no clubbing Skin: no rash, no lesions Microbiology Date/Time Source Procedure Growth Status 10/24/16 14:20 Blood Blood Culture - Preliminary Resulted Laboratory Tests Test 10/25/16 07:25 Erythrocyte Sedimentation Rate 4 MM/HR (0-30) Hemoglobin A1c 5.0 % (< 6.0) Troponin I < 0.30 ng/mL (<=0.30) Pro-B-Type Natriuretic Peptide 999 pg/mL (0-450) H Total Protein (PEP) Pending Albumin (PEP) Pending Globulin (PEP) Pending Albumin/Globulin Ratio Pending Rpuvt-0-Kcylsxaxu Pending Eqfls-3-Hzrdvaqev Pending Beta Globulins Pending Beta Gamma Globulin Pending PEP Abnormal Protein Bands Pending Protein Electrophoresis Interpret Pending Vitamin B12 Level 211 pg/mL (211-946) Vitamin D 25-Hydroxy Pending 25-Hydroxy Vitamin D2 Pending 25-Hydroxy Vitamin D3 Pending Folate Pending Rapid Plasma Reagin Pending Current Medications Medications (Trade) Dose Ordered Sig/Jose Route PRN Reason Start Time Stop Time Status Last Admin Dose Admin Acetaminophen (Tylenol) 650 mg Q4H PRN ORAL fever 10/23/16 22:45 11/22/16 22:44 Al Hydroxide/Mg Hydroxide (Mylanta II) 30 ml Q6H PRN ORAL dyspepsia 10/23/16 22:45 11/22/16 22:44 Carvedilol (Coreg) 3.125 mg Q12HR ORAL 10/24/16 18:00 11/23/16 17:59 10/25/16 08:47 Ceftriaxone Sodium 2 gm/ Dextrose 110 ml @ 220 mls/hr Q24H IVPB 10/24/16 15:00 10/31/16 14:59 10/24/16 16:05 Dextrose STAT PRN IV Hypoglycemia 10/23/16 22:45 11/22/16 22:44 Dextrose/Sodium Chloride (D5 0.45% NS) 1,000 ml @ 75 mls/hr [id number] IV 10/23/16 17:40 11/22/16 17:39 10/24/16 20:33 Diphenhydramine HCl (Benadryl) 25 mg Q6H PRN ORAL Itching/Pruritis 10/23/16 22:45 11/22/16 22:44 Heparin Sodium (Porcine) (Heparin 5000 units/ml) 5,000 units EVERY 12 HOURS SUBQ 10/24/16 09:00 11/23/16 08:59 10/25/16 08:48 Lisinopril (Zestril) 10 mg DAILY ORAL 10/25/16 09:00 11/24/16 08:59 10/25/16 08:47 Metronidazole (Flagyl) 100 ml @ 100 mls/hr Q8HR IVPB 10/24/16 16:00 10/31/16 15:59 10/25/16 06:06 Morphine Sulfate (Morphine Sulfate) 2 mg Q4H PRN IVP severe Pain (Pain Scale 7-10) 10/23/16 22:45 10/30/16 22:44 Nitroglycerin (Ntg) 0.4 mg Q5M X 3 DOSES PRN SL Prn Chest Pain 10/23/16 22:45 11/22/16 22:44 Ondansetron HCl (Zofran) 4 mg Q6H PRN IVP Nausea & Vomiting 10/23/16 22:45 11/22/16 22:44 Polyethylene Glycol (Miralax) 17 gm HSPRN PRN ORAL Constipation 10/23/16 22:45 11/22/16 22:44 Spironolactone (Aldactone) 25 mg DAILY ORAL 10/25/16 09:00 11/24/16 08:59 Temazepam (Restoril) 15 mg HSPRN PRN ORAL Insomnia 10/23/16 22:45 10/30/16 22:44 10/25/16 00:28 Elizabeth Dietrich M.D. Oct 25, 2016 16:13
--- NOTE | 2016-10-25 21:37 | General Progress Note ---
Assessment/Plan Assessment/Plan Assessment - Diarrhea - h/o arrhythmias - CAD Recommendations - push po - follow symptoms - elevate HOB - f/u stool w/u Subjective Allergies: Coded Allergies: No Known Allergies (Unverified , 10/23/16) Subjective Feels OK no abdominal complaints no vomiting or diarrhea tolerating PO for d/c Objective Last 24 Hour Vital Signs Date Time Temp Pulse Resp B/P Pulse Ox O2 Delivery O2 Flow Rate FiO2 10/25/16 11:53 97.2 55 20 114/61 96 Room Air 10/25/16 11:46 55 10/25/16 08:47 128/66 10/25/16 08:47 61 128/66 10/25/16 08:37 97.0 57 18 128/66 97 Room Air 10/25/16 07:34 53 10/25/16 04:04 98.8 50 19 108/59 96 Room Air 10/25/16 04:00 60 10/25/16 00:03 97.9 53 20 115/63 98 Room Air 10/25/16 00:00 84 Intake and Output 10/24/16 10/25/16 19:00 07:00 Intake Total 525 ml 600 ml Output Total 600 ml 900 ml Balance -75 ml -300 ml IV Total 525 ml 600 ml Output Urine Total 600 ml 900 ml Laboratory Tests 10/25/16 07:25: Erythrocyte Sedimentation Rate 4, Hemoglobin A1c 5.0, Troponin I < 0.30, Pro-B- Type Natriuretic Peptide 999H, Total Protein (PEP) [Pending], Albumin (PEP) [ Pending], Globulin (PEP) [Pending], Albumin/Globulin Ratio [Pending], Alpha-1- Globulins [Pending], Bgkhs-3-[place] [Pending], Beta Globulins [Pending], Beta Gamma Globulin [Pending], PEP Abnormal Protein Bands [Pending], Protein Electrophoresis Interpret [Pending], Vitamin B12 Level 211, Vitamin D 25- Hydroxy [Pending], 25-Hydroxy Vitamin D2 [Pending], 25-Hydroxy Vitamin D3 [ Pending], Folate [Pending], Rapid Plasma Reagin [Pending] Height (Feet): 5 Height (Inches): 8.00 Weight (Pounds): 165 Objective Elderly WM NCAT supple CTA RRR Soft NT ND no edema THERESE GILL Oct 25, 2016 21:37
--- NOTE | 2016-10-25 22:10 | Pulmonology Progress Note ---
Assessment/Plan Problems: (1) Hypotension (2) Diverticulosis (3) Intractable abdominal pain (4) Pacemaker Assessment/Plan Assessment/Plan Iv fluids echo NPO/GI work up evaluate pace maker check electrolytes Subjective ROS Limited/Unobtainable: No Constitutional: Reports: anorexia, chills, fatigue Gastrointestinal/Abdominal: Reports: diarrhea, nausea, vomiting Neurologic: Reports: weakness Allergies: Coded Allergies: No Known Allergies (Unverified , 10/23/16) Objective Last 24 Hour Vital Signs Date Time Temp Pulse Resp B/P Pulse Ox O2 Delivery O2 Flow Rate FiO2 10/25/16 11:53 97.2 55 20 114/61 96 Room Air 10/25/16 11:46 55 10/25/16 08:47 128/66 10/25/16 08:47 61 128/66 10/25/16 08:37 97.0 57 18 128/66 97 Room Air 10/25/16 07:34 53 10/25/16 04:04 98.8 50 19 108/59 96 Room Air 10/25/16 04:00 60 10/25/16 00:03 97.9 53 20 115/63 98 Room Air 10/25/16 00:00 84 Intake and Output 10/24/16 10/25/16 19:00 07:00 Intake Total 525 ml 600 ml Output Total 600 ml 900 ml Balance -75 ml -300 ml IV Total 525 ml 600 ml Output Urine Total 600 ml 900 ml General Appearance: no acute distress HEENT: normocephalic, atraumatic, PERRL Respiratory/Chest: chest wall non-tender, decreased breath sounds, accessory muscle use Cardiovascular: normal peripheral pulses, normal rate, regular rhythm, no JVD Abdomen: hyperactive bowel sounds, distended, guarding, tender, rebound tenderness Genitourinary: normal external genitalia Extremities: no cyanosis Skin: no rash 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, no motor/sensory deficits Microbiology Date/Time Source Procedure Growth Status 10/24/16 14:20 Blood Blood Culture - Preliminary Resulted Laboratory Tests 10/25/16 07:25: Erythrocyte Sedimentation Rate 4, Hemoglobin A1c 5.0, Troponin I < 0.30, Pro-B- Type Natriuretic Peptide 999H, Total Protein (PEP) [Pending], Albumin (PEP) [ Pending], Globulin (PEP) [Pending], Albumin/Globulin Ratio [Pending], Alpha-1- Globulins [Pending], Ewvmp-2-Yzqcdrfow [Pending], Beta Globulins [Pending], Beta Gamma Globulin [Pending], PEP Abnormal Protein Bands [Pending], Protein Electrophoresis Interpret [Pending], Vitamin B12 Level 211, Vitamin D 25- Hydroxy [Pending], 25-Hydroxy Vitamin D2 [Pending], 25-Hydroxy Vitamin D3 [ Pending], Folate [Pending], Rapid Plasma Reagin [Pending] ABBY JONES Oct 25, 2016 22:10
[2016-10-26 10:22] LABS: A/G RATIO 1.8 (0.7-1.7); ABNORMAL PROTEIN BAND 1 Not Observed g/dL (Not Observed); ALBUMIN 3.3 g/dL (2.9-4.4); ALPHA-1 GLOBULIN 0.1 g/dL (0.0-0.4); ALPHA-2 GLOBULIN 0.5 g/dL (0.4-1.0); BETA GLOBULIN 0.8 g/dL (0.7-1.3); GAMMA GLOBULIN 0.4 g/dL (0.4-1.8); GLOBULIN, TOTAL 1.8 g/dL (2.2-3.9); TOTAL PROTEIN 5.1 g/dL (6.0-8.5)
--- NOTE | 2016-10-26 13:21 | Discharge Summary ---
Discharge Summary Hospital Course Date of Admission Oct 23, 2016 at 21:38 Date of Discharge Oct 25, 2016 at 15:35 Admitting Diagnosis abd pain, diarrhea, dehydration HPI Dakota Reardon is a 86 year old male who was admitted on Oct 23, 2016 at 21:38 for Abdominal Pain,Diarrhea,Dehydration Hospital Course [id number] Discharge Discharge Disposition Patient was discharged to Home with Home Health(06) Discharge Diagnoses: Bianca Tolliver NP Oct 26, 2016 13:21
--- NOTE | 2016-10-27 00:19 | Discharge Summary 2 SIG ---
DATE OF ADMISSION: 10/23/2016 DATE OF DISCHARGE: 10/25/2016 CONSULTANTS: 1. Tonya Hatfield M.D. 2. Heather Lopes M.D. 3. Elizabeth Dietrich M.D. 4. Ulisses Jefferson M.D. 5. Chapito Crump M.D. BRIEF HOSPITAL COURSE: The patient is an 86-year-old male, who came in complaining of abdominal pain, diarrhea, and dehydration with dizziness. He has history of pacemaker status post AK, heart valve replacement, and status post coronary stent x2. On evaluation at ED, BNP was elevated. EKG showed atrial paced rhythm. CAT scan of the abdomen and pelvis showed diverticulosis with bladder thickening. He was admitted to telemetry unit. Per history, the patient had syncopal episode requiring cardiopulmonary resuscitation prior to admission. Echocardiogram done showed ejection fraction of 30% to 35% with apical anterolateral, anteroseptal and inferior septal wall akinesia suggestive of ischemic cardiomyopathy. Dr. Lopes was consulted. Abdominal pain and diarrhea improved and diet was advanced. He was started empirically on ceftriaxone and Flagyl. Stool culture and C. difficile was ordered, however, was not sent. Renal function improved with IV hydration. Vitals has been stable. Cultures were negative. The patient was eventually discharged home with home health. FINAL DIAGNOSES: 1. Acute diverticulosis. 2. Acute kidney injury. 3. Dehydration. 4. Hypotension secondary to dehydration and diarrhea. 5. Syncopal event secondary to dehydration and poor nutritional intake. 6. [employer] biventricular defibrillator implantation. 7. Coronary artery disease with prior stent. 8. Ischemic cardiomyopathy. April Adorno M.D. I have been assigned to dictate discharge summary on this account and I was not involved in the patient's management. Bianca Tolliver N.P. DR: Bradley JOB#: [id number] CC: [email or web address]
[2016-10-30 09:27] LABS: VITAMIN D 25-OH TOTAL 47 ng/mL (.)
== END 2016-10-25 15:35 | disposition home or self-care (01) | DRG 641 ==
LOC: EDBD 18:00 → EMR 18:17 → 2E 21:38 → EDBEDREQ 22:37 → EDBEDREQSVC 23:10 → EDBEDREQTM 23:10 → EDBEDREQ 23:14 → 2E 10-24 02:42
DX: E86.0 Dehydration (principal); N17.9 Acute kidney failure, unspecified; I95.9 Hypotension, unspecified; I25.5 Ischemic cardiomyopathy; K57.90 Diverticulosis of intestine, part unspecified, without perforation or abscess without bleeding; R19.7 Diarrhea, unspecified; R55 Syncope and collapse; Z95.810 Presence of automatic (implantable) cardiac defibrillator; I25.10 Atherosclerotic heart disease of native coronary artery without angina pectoris; Z95.5 Presence of coronary angioplasty implant and graft; Z95.4 Presence of other heart-valve replacement; I10 Essential (primary) hypertension
CPT/HCPCS: 36415; 71010; 74177; 76700; 80053; 81001; 82150; 82306; 82436; 82533; 82550; 82553; 82607; 82746; 83036; 83690; 83735; 83880; 83930; 83935; 84100; 84133; 84165; 84300; 84439; 84443; 84481; 84484; 84550; 85025; 85651; 85730; 86592; 87040; 87081; 87181; 89050; 93005; 93306